=== PATIENT | female | born 1955 | race Caucasian/White ===

== ENCOUNTER 2016-10-22 14:57 | Inpatient (IN) | payer OTHER ==
[~2016-10-22] VITALS: Ht 162.6 cm; Wt 49.1 kg
[~2016-10-22 14:57] MED LIST: BENZ1CAP34 PO; CEPH500C3 PO; DOXY100T PO; HYDR200T42 PO; IPRAAER IN; LORTA5 PO; OSEL75 PO; TUSSSUS PO
[2016-10-22 15:04] VITALS: BP 146/80; PULSE 107; RESP 24; TEMP 99; O2SAT 92
[2016-10-22 15:13] VITALS: RESP 18; O2SAT 96
[2016-10-22] MEDS ORDERED: ALBUAER3 INH (15:17)
[2016-10-22] MEDS ORDERED: PLAQ200T PO (15:17)
[2016-10-22] MEDS ORDERED: LEVO500T8 PO (15:17)
[2016-10-22] MEDS ORDERED: PRED10 PO (15:17)
[2016-10-22] MEDS ORDERED: ALBU.5I NEB (15:17)
--- NOTE | 2016-10-22 15:21 | PD ---
HPI Chief Complaint: Respiratory Distress Time Seen by Provider: 15:12 Travel History International Travel<30 days: No Contact w/Intl Traveler<30days: No Traveled to known affect area: No History of Present Illness HPI The patient is a 61-year-old female who presents emergency department for shortness of breath. The patient states she developed shortness of breath and cough and cold symptoms several days ago, was evaluated at the [facility] walk-in clinic by Dr. Delvalle. The patient was placed on Levaquin, prednisone, and advised to use her albuterol nebulizers/inhalers at home. The patient has been taken her medications as directed, however, states her symptoms are progressing. The patient called her electrical tech/project manager this morning, Dr. Holden, who referred her to the emergency department for further evaluation. The patient does have a history of COPD, quit smoking 2 years ago. She also has a history of lupus for which she takes Plaquenil. The patient denies any known history congestive heart failure, pulmonary embolism, DVT, or coronary artery disease. Patient does have a dry, nonproductive cough, denies any associated chest pain, nausea, vomiting, diarrhea, or abdominal pain. PFSH Past Medical History Hx Anticoagulant Therapy: Yes (EXCEDRIN DAILY ) Autoimmune Disease: Yes (DISCOID LUPUS) Blood Disorders: No Cancer: No Cardiovascular Problems: No COPD: Yes Diminished Hearing: No Endocrine: No Gastrointestinal Disorders: No Genitourinary: Yes Musculoskeletal: No Neurologic: No Psychiatric: No Reproductive: No Respiratory: Yes (COPD) Past Surgical History Abdominal Surgery: No Cardiac Surgery: No Ear Surgery: No Endocrine Surgery: No Eye Surgery: No Genitourinary Surgery: No Gynecologic Surgery: No Neurologic Surgery: No Oral Surgery: No Thoracic Surgery: No Other Surgery: Yes ( EYELIDS, PLASTIC SURGERY) Social History Alcohol Use: No Tobacco Use: No (PACK PER DAY) Substance Use: No Allergies-Medications (Allergen,Severity, Reaction): Coded Allergies: Penicillin (Verified Allergy, Severe, UNKNOWN REACTION, 10/22/16) Codeine (Verified Adverse Reaction, Severe, VOMITING, DIARRHEA, 10/22/16) Erythromycin (Verified Adverse Reaction, Severe, VOMITING, DIARRHEA, ) Reported Meds & Prescriptions Reported Meds & Active Scripts Active Reported Proair Hfa 8.5 GM Inh (Albuterol Sulfate) 90 Mcg/Act Aer 2 Puff INH Q4-6H PRN 108 mcg/actuation Albuterol Neb (Albuterol Sulfate) 2.5 Mg/0.5 Ml Neb 2.5 Mg NEB Q6HR NEB Note: The Albuterol Sulfate Inhalation Solution is concentrated and must be diluted. Read complete instructions carefully before using. Prednisone 10 Mg Tab 10 Mg PO DIRECTED Levofloxacin 500 Mg Tablet 500 Mg PO DAILY Plaquenil (Hydroxychloroquine Sulfate) 200 Mg Tab 600 Mg PO DAILY Take with food Review of Systems Except as stated in HPI: all other systems reviewed are Neg General / Constitutional: No: Fever, Chills Cardiovascular: No: Chest Pain or Discomfort Respiratory: Positive: Cough, Shortness of Breath Gastrointestinal: No: Nausea, Vomiting, Abdominal Pain Musculoskeletal: No: Myalgias, Weakness, Edema Neurologic: No: Dizziness Physical Exam Narrative GENERAL: Awake, alert, pleasant 61-year-old female who appears her stated age and is in mild acute respiratory distress SKIN: Focused skin assessment warm/dry. HEAD: Atraumatic. Normocephalic. EYES: Pupils equal and round. No scleral icterus. No injection or drainage. ENT: No nasal bleeding or discharge. Mucous membranes pink and moist. NECK: Trachea midline. No JVD. CARDIOVASCULAR: Regular, tachycardic with a heart rate of 110. RESPIRATORY: Mild tachypnea with a respiratory rate of 24. Diminished breath sounds throughout with prolonged expiratory phase and scattered rhonchi. GASTROINTESTINAL: Abdomen soft, non-tender, nondistended. No rebound tenderness. MUSCULOSKELETAL: No obvious deformities. No clubbing. No cyanosis. No edema. NEUROLOGICAL: Awake and alert. No obvious cranial nerve deficits. Motor grossly within normal limits. Normal speech. PSYCHIATRIC: Appropriate mood and affect; insight and judgment normal. Data Data Last Documented VS Vital Signs Date Time Temp Pulse Resp B/P Pulse Ox O2 Delivery O2 Flow Rate FiO2 10/22/16 17:47 97 158/70 96 Nasal Cannula 2.0 10/22/16 15:13 18 10/22/16 15:04 99.0 Orders Complete Blood Count With Diff (10/22/16 15:16) Comprehensive Metabolic Panel (10/22/16 15:16) B-Type Natriuretic Peptide (10/22/16 15:16) Act Partial Throm Time (Ptt) (10/22/16 15:16) Prothrombin Time / Inr (Pt) (10/22/16 15:16) Magnesium (Mg) (10/22/16 15:16) Ckmb (Isoenzyme) Profile (10/22/16 15:16) Troponin I (10/22/16 15:16) Blood Culture (10/22/16 15:16) Iv Access Insert/Monitor (10/22/16 15:16) Electrocardiogram (10/22/16 15:16) Ecg Monitoring (10/22/16 15:16) Oximetry (10/22/16 15:16) Oxygen Administration (10/22/16 15:16) Chest, Single Ap (10/22/16 15:16) Sodium Chloride 0.9% Flush (Ns Flush) (10/22/16 15:30) Methylprednisolone So Succ Inj (Solumedr (10/22/16 15:30) Albuterol-Ipratropium Neb (Duoneb Neb) (10/22/16 15:30) Lactic Acid (10/22/16 15:16) Sodium Chlor 0.9% 1000 Ml Inj (Ns 1000 M (10/22/16 15:30) Ct Pulmonary Angiogram (10/22/16 ) CKMB (10/22/16 15:20) CKMB% (10/22/16 15:20) Iohexol 350 Inj (Omnipaque 350 Inj) (10/22/16 18:17) Labs Laboratory Tests Test 10/22/16 15:20 White Blood Count 7.1 TH/MM3 Red Blood Count 4.79 MIL/MM3 Hemoglobin 14.2 GM/DL Hematocrit 41.4 % Mean Corpuscular Volume 86.4 FL Mean Corpuscular Hemoglobin 29.5 PG Mean Corpuscular Hemoglobin 34.2 % Concent Red Cell Distribution Width 13.1 % Platelet Count 227 TH/MM3 Mean Platelet Volume 9.6 FL Neutrophils (%) (Auto) 88.6 % Lymphocytes (%) (Auto) 7.8 % Monocytes (%) (Auto) 3.2 % Eosinophils (%) (Auto) 0.0 % Basophils (%) (Auto) 0.4 % Neutrophils # (Auto) 6.3 TH/MM3 Lymphocytes # (Auto) 0.6 TH/MM3 Monocytes # (Auto) 0.2 TH/MM3 Eosinophils # (Auto) 0.0 TH/MM3 Basophils # (Auto) 0.0 TH/MM3 CBC Comment DIFF FINAL Differential Comment Prothrombin Time 11.3 SEC Prothromb Time International 1.0 RATIO Ratio Activated Partial 24.5 SEC Thromboplast Time Sodium Level 140 MEQ/L Potassium Level 4.3 MEQ/L Chloride Level 104 MEQ/L Carbon Dioxide Level 30.1 MEQ/L Anion Gap 6 MEQ/L Blood Urea Nitrogen 20 MG/DL Creatinine 0.71 MG/DL Estimat Glomerular Filtration 84 ML/MIN Rate Random Glucose 110 MG/DL Lactic Acid Level 1.2 mmol/L Calcium Level 9.3 MG/DL Magnesium Level 2.2 MG/DL Total Bilirubin 0.4 MG/DL Aspartate Amino Transf 24 U/L (AST/SGOT) Alanine Aminotransferase 34 U/L (ALT/SGPT) Alkaline Phosphatase 61 U/L Total Creatine Kinase 108 U/L Creatine Kinase MB 1.7 NG/ML Troponin I LESS THAN 0.02 NG/ML B-Type Natriuretic Peptide 21 PG/ML Total Protein 7.7 GM/DL Albumin 4.2 GM/DL MDM Medical Decision Making Medical Screen Exam Complete: Yes Emergency Medical Condition: Yes Medical Record Reviewed: Yes Interpretation(s) EKG reveals normal sinus rhythm with a rate in 93. Left ventricular hypertrophy. Nonspecific ST changes. Last Impressions Chest X-Ray 10/22/16 1516 Signed Impressions: Service Date/Time: Monday, October 22, 2016 15:36 - CONCLUSION: 1. No acute cardiopulmonary disease. Vadim Archuleta MD Laboratory Tests Test 10/22/16 15:20 White Blood Count 7.1 TH/MM3 Red Blood Count 4.79 MIL/MM3 Hemoglobin 14.2 GM/DL Hematocrit 41.4 % Mean Corpuscular Volume 86.4 FL Mean Corpuscular Hemoglobin 29.5 PG Mean Corpuscular Hemoglobin 34.2 % Concent Red Cell Distribution Width 13.1 % Platelet Count 227 TH/MM3 Mean Platelet Volume 9.6 FL Neutrophils (%) (Auto) 88.6 % Lymphocytes (%) (Auto) 7.8 % Monocytes (%) (Auto) 3.2 % Eosinophils (%) (Auto) 0.0 % Basophils (%) (Auto) 0.4 % Neutrophils # (Auto) 6.3 TH/MM3 Lymphocytes # (Auto) 0.6 TH/MM3 Monocytes # (Auto) 0.2 TH/MM3 Eosinophils # (Auto) 0.0 TH/MM3 Basophils # (Auto) 0.0 TH/MM3 CBC Comment DIFF FINAL Differential Comment Prothrombin Time 11.3 SEC Prothromb Time International 1.0 RATIO Ratio Activated Partial 24.5 SEC Thromboplast Time Sodium Level 140 MEQ/L Potassium Level 4.3 MEQ/L Chloride Level 104 MEQ/L Carbon Dioxide Level 30.1 MEQ/L Anion Gap 6 MEQ/L Blood Urea Nitrogen 20 MG/DL Creatinine 0.71 MG/DL Estimat Glomerular Filtration 84 ML/MIN Rate Random Glucose 110 MG/DL Lactic Acid Level 1.2 mmol/L Calcium Level 9.3 MG/DL Magnesium Level 2.2 MG/DL Total Bilirubin 0.4 MG/DL Aspartate Amino Transf 24 U/L (AST/SGOT) Alanine Aminotransferase 34 U/L (ALT/SGPT) Alkaline Phosphatase 61 U/L Total Creatine Kinase 108 U/L Creatine Kinase MB 1.7 NG/ML Troponin I LESS THAN 0.02 NG/ML B-Type Natriuretic Peptide 21 PG/ML Total Protein 7.7 GM/DL Albumin 4.2 GM/DL CT pulmonary angiogram reveals no pulmonary embolus or other acute cardiopulmonary disease demonstrated. Emphysema and left ventricular hypertrophy noted. Differential Diagnosis Differential diagnosis includes pneumonia, bronchitis, pulmonary embolism, acute coronary syndrome, pleural effusion, congestive heart failure, flash pulmonary edema, pneumonitis, pericardial effusion. Narrative Course IV was established, labs are drawn and sent, and the patient was placed on cardiac telemetry monitoring and continuous pulse oximetry monitoring. EKG was ordered and interpreted. Chest x-ray was obtained. The patient was administered Solu-Medrol 125 mg intravenously and duo nebs 3 with 1 L of IV fluids. Chest x-rays unremarkable and the patient was tachycardic with hypoxia , therefore, CT pulmonary angiogram was ordered. CT pulmonary injury gram is negative except for emphysema left ventricular hypertrophy. The patient was reevaluated at 6:25 PM. The patient ambulated from the bathroom to her room, was significantly short of breath, this is consistent with bronchitis and her COPD exacerbation. The patient is a 30 on antibiotics and steroids and her symptoms are progressing. The patient has [facility] and is a patient of Gurinder Montana, therefore, the on-call [facility] physician was paged for admission. Physician Communication Physician Communication [facility] was paged for admission. I discussed the patient with Dr. White who agrees with admission to Dr. Klein Diagnosis Primary Impression: COPD exacerbation Additional Impressions: Bronchitis Hypoxia Admitting Information Admitting Physician Requests: Admit Condition: Stable Ramo Galicia MD Oct 22, 2016 15:21
[2016-10-22] MEDS ORDERED: SODIUM CHLORIDE 0.9% FLUSH 10 ML FLUSH IVF PRN (15:30)
[2016-10-22] MEDS ORDERED: SODIUM CHLOR 0.9% 1000 ML INJ 1,000 ML IV ONE (15:30)
[2016-10-22] MEDS ORDERED: methylPREDNISolone SOD SUCC 125 MG/2 ML VIAL IVP ONE (15:30)
[2016-10-22 15:53] LABS: AUTOMATED NEUTROPHIL # 6.3 TH/MM3 (1.8-7.7); BASOPHIL % 0.4 % (0.0-2.0); HEMATOCRIT 41.4 % (35.0-46.0); HEMO FLAGS DIFF FINAL; LYMPH % 7.8 % (9.0-44.0); LYMPHOCYTE # 0.6 TH/MM3 (1.0-4.8); MEAN CELL VOLUME 86.4 FL (80.0-100.0); MEAN CORPUSCULAR HEMOGLOBIN 29.5 PG (27.0-34.0); MEAN CORPUSCULAR HGB CONC 34.2 % (32.0-36.0); MONO % 3.2 % (0.0-8.0); NEUT % 88.6 % (16.0-70.0); PLATELET COUNT 227 TH/MM3 (150-450); RED BLOOD COUNT 4.79 MIL/MM3 (4.00-5.30); RED CELL DISTRIBUTION WIDTH 13.1 % (11.6-17.2); WHITE BLOOD COUNT 7.1 TH/MM3 (4.0-11.0)
--- NOTE | 2016-10-22 15:57 | RADRPT ---
EXAM DATE/TIME: 10/22/2016 15:36 [facility] COMPARISON: No previous studies available for comparison. INDICATIONS : Shortness of breath. MEDICAL HISTORY : Chronic obstructive pulmonary disease. SURGICAL HISTORY : None. ENCOUNTER: Initial ACUITY: 1 day PAIN SCORE: 0/10 LOCATION: Bilateral chest FINDINGS: Lungs are hyperexpanded but are otherwise clear. Cardiomediastinal contours are within normal limits. Bony thorax is intact. CONCLUSION: 1. No acute cardiopulmonary disease. Vadim Archuleta MD on October 22, 2016 at 15:55 Board Certified Radiologist. This report was verified electronically.
[2016-10-22 16:03] LABS: APTT (PATIENT) 24.5 SEC (24.3-30.1); PROTHROMBIN TIME - PATIENT 11.3 SEC (9.8-11.6)
[2016-10-22 16:20] VITALS: BP 161/79; PULSE 82; RESP 16; O2SAT 99
[2016-10-22 16:21] LABS: ALKALINE PHOSPHATASE 61 U/L (45-117); CREATINE KINASE 108 U/L (26-192); TOTAL BILIRUBIN ADULT 0.4 MG/DL (0.2-1.0)
[2016-10-22 16:24] LABS: ALT (GPT) 34 U/L (10-53); ANION GAP 6 MEQ/L (5-15); AST (GOT) 24 U/L (15-37); BICARBONATE 30.1 MEQ/L (21.0-32.0); BLOOD UREA NITROGEN 20 MG/DL (7-18); CHLORIDE 104 MEQ/L (98-107); GLOMERULAR FILTRATION RATE 84 ML/MIN (>89); MAGNESIUM 2.2 MG/DL (1.5-2.5); POTASSIUM 4.3 MEQ/L (3.5-5.1); SODIUM (NA) 140 MEQ/L (136-145)
[2016-10-22 16:33] LABS: CKMB 1.7 NG/ML (0.5-3.6)
[2016-10-22] MEDS: RESP: ALBUTEROL 2.5 MG/IPRATROPIUM 0.5 MG NEB (SCH) INH ×2 (16:57→16:58)
[2016-10-22 17:47] VITALS: BP 158/70; PULSE 97; O2SAT 96
[2016-10-22] MEDS ORDERED: IOHEXOL 350 MG/ML 10 ML VIAL (for RAD DIAG) IV ONE (18:17)
--- NOTE | 2016-10-22 18:21 | RADRPT ---
EXAM DATE/TIME: 10/22/2016 18:00 [facility] COMPARISON: CHEST SINGLE AP, October 22, 2016, 15:36. INDICATIONS : Shortness of breath. IV CONTRAST: 80 cc Omnipaque 350 (iohexol) IV RADIATION DOSE: 20.93 CTDIvol (mGy) MEDICAL HISTORY : Chronic obstructive pulmonary disease. Lupus SURGICAL HISTORY : None. ENCOUNTER: Initial ACUITY: 3 days PAIN SCALE: 0/10 LOCATION: Bilateral cranial TECHNIQUE: Volumetric scanning of the chest was performed using a pulmonary embolism protocol MIP images were re constructed. Using automated exposure control and adjustment of the mA and/or kV according to patien t size, radiation dose was kept as low as reasonably achievable to obtain optimal diagnostic quality images. FINDINGS: PULMONARY ARTERIES: No filling defects are seen in the pulmonary arteries through the segmental level. LUNGS: There is no consolidation or pneumothorax . No concerning pulmonary nodule is visualized. Moderate c entrilobular emphysema noted. PLEURAE: There is no pleural thickening or pleural effusion. MEDIASTINUM: There is good visualization of the great vessels of the middle mediastinum. No evidence of mediastin al or hilar adenopathy/mass. Thick left ventricular wall. No perceptible dilatation. MUSCULOSKELETAL: Within normal limits for patient age. MISCELLANEOUS: The visualized upper abdominal organs demonstrate no acute abnormality. A 12 mm hemangioma is seen in the visualized left hepatic lobe. CONCLUSION: No pulmonary embolus or other acute cardiopulmonary disease demonstrated. Emphysema and left ventricu lar hypertrophy noted. Jack Bailey MD on October 22, 2016 at 18:17 Board Certified Radiologist. This report was verified electronically.
[2016-10-22] MEDS ORDERED: ALBUTEROL SULFATE 90 MCG/ACT HFA 8 GM INHALER INH PRN (20:00)
--- NOTE | 2016-10-22 20:08 | HHI.HP ---
HPI Service [facility] Hospitalists Primary Care Physician Gurinder Montana DO Admission Diagnosis COPD exacerbation fell outpatient therapy, dyspnea Chief Complaint: increasing Shortness of breath Travel History International Travel<30 Days: No Contact w/Intl Traveler <30 Da: No Traveled to Known Affected Are: No History of Present Illness The patient is a 61-year-old female who presents emergency department for shortness of breath. The patient states she developed shortness of breath and cough and cold symptoms several days ago, was evaluated at the [facility] walk-in clinic by Dr. Delvalle. The patient was placed on Levaquin, prednisone, and advised to use her albuterol nebulizers/inhalers at home. The patient has been taken her medications as directed, however, states her symptoms are progressing. The patient called her supervisor public message service this morning, Dr. Holden, who referred her to the emergency department for further evaluation. The patient does have a history of COPD, quit smoking 2 years ago. She also has a history of lupus for which she takes Plaquenil. The patient denies any known history congestive heart failure, pulmonary embolism, DVT, or coronary artery disease. Patient does have a dry, nonproductive cough, denies any associated chest pain, nausea, vomiting, diarrhea, or abdominal pain. Despite treatment in ER remained short of breath and will be admitted for continued treatment. Review of Systems Respiratory: COMPLAINS OF: Shortness of breath Past Family Social History Past Medical History lupus copd Past Surgical History breast augmentation,eyelid plastic surgery Reported Medications nebulizer proaire,prednisone ,levaquin,plaquinil Allergies: Coded Allergies: Penicillin (Verified Allergy, Severe, UNKNOWN REACTION, 10/22/16) Codeine (Verified Adverse Reaction, Severe, VOMITING, DIARRHEA, 10/22/16) Erythromycin (Verified Adverse Reaction, Severe, VOMITING, DIARRHEA, ) Social History smokes 1 ppd Physical Exam Vital Signs Vital Signs Date Time Temp Pulse Resp B/P Pulse Ox O2 Delivery O2 Flow Rate FiO2 10/22/16 17:47 97 158/70 96 Nasal Cannula 2.0 10/22/16 16:20 82 16 161/79 99 Nasal Cannula 2 10/22/16 15:13 18 96 Nasal Cannula 2 10/22/16 15:13 96 Nasal Cannula 2 10/22/16 15:04 99.0 107 24 146/80 92 Room Air Physical Exam GENERAL: This is a well-nourished, well-developed patient, in no apparent distress. SKIN: No rashes, ecchymoses or lesions. Cool and dry. HEAD: Atraumatic. Normocephalic. No temporal or scalp tenderness. EYES: Pupils equal round and reactive. Extraocular motions intact. No scleral icterus. No injection or drainage. ENT: Nose without bleeding, purulent drainage or septal hematoma. Throat without erythema, tonsillar hypertrophy or exudate. Uvula midline. Airway patent. NECK: Trachea midline. No JVD or lymphadenopathy. Supple, nontender, no meningeal signs. CARDIOVASCULAR: Regular rate and rhythm without murmurs, gallops, or rubs. RESPIRATORY: Decrease breath sounds with bilateral rhonchi GASTROINTESTINAL: Abdomen soft, non-tender, nondistended. No hepato-splenomegaly , or palpable masses. No guarding. MUSCULOSKELETAL: Extremities without clubbing, cyanosis, or edema. No joint tenderness, effusion, or edema noted. No calf tenderness. Negative Homans sign bilaterally. NEUROLOGICAL: Awake and alert. Cranial nerves II through XII intact. Motor and sensory grossly within normal limits. Five out of 5 muscle strength in all muscle groups. Normal speech. Laboratory Laboratory Tests Test 10/22/16 15:20 White Blood Count 7.1 Red Blood Count 4.79 Hemoglobin 14.2 Hematocrit 41.4 Mean Corpuscular Volume 86.4 Mean Corpuscular Hemoglobin 29.5 Mean Corpuscular Hemoglobin 34.2 Concent Red Cell Distribution Width 13.1 Platelet Count 227 Mean Platelet Volume 9.6 Neutrophils (%) (Auto) 88.6 Lymphocytes (%) (Auto) 7.8 Monocytes (%) (Auto) 3.2 Eosinophils (%) (Auto) 0.0 Basophils (%) (Auto) 0.4 Neutrophils # (Auto) 6.3 Lymphocytes # (Auto) 0.6 Monocytes # (Auto) 0.2 Eosinophils # (Auto) 0.0 Basophils # (Auto) 0.0 CBC Comment DIFF FINAL Differential Comment Prothrombin Time 11.3 Prothromb Time International 1.0 Ratio Activated Partial 24.5 Thromboplast Time Sodium Level 140 Potassium Level 4.3 Chloride Level 104 Carbon Dioxide Level 30.1 Anion Gap 6 Blood Urea Nitrogen 20 Creatinine 0.71 Estimat Glomerular Filtration 84 Rate Random Glucose 110 Lactic Acid Level 1.2 Calcium Level 9.3 Magnesium Level 2.2 Total Bilirubin 0.4 Aspartate Amino Transf 24 (AST/SGOT) Alanine Aminotransferase 34 (ALT/SGPT) Alkaline Phosphatase 61 Total Creatine Kinase 108 Creatine Kinase MB 1.7 Troponin I LESS THAN 0.02 B-Type Natriuretic Peptide 21 Total Protein 7.7 Albumin 4.2 Date/Time Procedure Status Source Growth 10/22/16 15:20 Aerobic Blood Culture Received Blood Peripheral Pending 10/22/16 15:20 Anaerobic Blood Culture Received Blood Peripheral Pending Result Diagram: 10/22/16 1520 10/22/16 1520 Imaging Last 24 hours Impressions Chest X-Ray 10/22/16 1516 Signed Impressions: Service Date/Time: Saturday, October 22, 2016 15:36 - CONCLUSION: 1. No acute cardiopulmonary disease. Vadim Archuleta MD CT Angiography 10/22/16 0000 Signed Impressions: Service Date/Time: Monday, October 22, 2016 18:00 - CONCLUSION: No pulmonary embolus or other acute cardiopulmonary disease demonstrated. Emphysema and left ventricular hypertrophy noted. Jack Bailey MD Course in er received IV steroids and nebulizer Assessment and Plan Problem List: (1) COPD exacerbation Status: Acute Plan: admit IV steroids,nebulizer consult pulmonary Assessment and Plan further plan as case develops Code Status full Discussed Condition With patient Physician Certification 2 Midnight Certification Type: Admission for Inpatient Services Order for Inpatient Services The services are ordered in accordance with Medicare regulations or non- Medicare payer requirements, as applicable. In the case of services not specified as inpatient-only, they are appropriately provided as inpatient services in accordance with the 2-midnight benchmark. Estimated LOS (days): 3 3 days is the estimated time the patient will need to remain in the hospital, assuming treatment plan goals are met and no additional complications. Post-Hospital Plan: Not yet determined Kane White MD Oct 22, 2016 20:08
[2016-10-22] MEDS ORDERED: BISACODYL 10 MG SUPP RECTAL PRN (20:15)
[2016-10-22] MEDS ORDERED: SODIUM CHLORIDE 0.9% FLUSH 10 ML FLUSH IV FLUSH PRN (20:15)
[2016-10-22] MEDS ORDERED: SENNOSIDES 8.6 MG TAB PO PRN (20:15)
[2016-10-22] MEDS ORDERED: MAGNESIUM HYDROXIDE SUSP 30 ML CUP PO PRN (20:15)
[2016-10-22] MEDS ORDERED: LACTULOSE SYRUP 20 GM/30 ML CUP PO PRN (20:15)
[2016-10-22] MEDS ORDERED: NALOXONE HCL 0.4 MG/ML AMP IV PRN (20:15)
[2016-10-22] MEDS ORDERED: ACETAMINOPHEN 325 MG TAB PO PRN (20:15)
[2016-10-22] MEDS ORDERED: ALBUTEROL SULFATE 90 MCG/ACT HFA 18 GM INHALER INH PRN (20:30)
[2016-10-22] MEDS: SODIUM CHLORIDE 0.9% FLUSH 10 ML FLUSH IV FLUSH SCH (21:00)
[2016-10-22] MEDS: DOCUSATE SODIUM 50 MG/SENNA 8.6 MG TAB PO SCH (21:00)
[2016-10-22 21:05] VITALS: BP 133/79; PULSE 78; RESP 18; TEMP 98.7; O2SAT 96
[2016-10-22 21:20] VITALS: O2SAT 95
[2016-10-22] MEDS: RESP: ALBUTEROL 2.5 MG/IPRATROPIUM 0.5 MG NEB (SCH) NEB (21:20)
[2016-10-22] MEDS: methylPREDNISolone SOD SUCC 125 MG/2 ML VIAL IV PUSH SCH (21:29)
[2016-10-22] MEDS: HYDROXYCHLOROQUINE SULFATE 200 MG TAB PO SCH (21:50)
[2016-10-23] VITALS (8 sets, daily range): BP systolic 113–150; BP diastolic 62–79; PULSE 75–96; RESP 16–22; TEMP 97.8–98.9; O2SAT 94–99
[2016-10-23] MEDS: methylPREDNISolone SOD SUCC 125 MG/2 ML VIAL IV PUSH SCH ×4 (06:06→23:23)
[2016-10-23] MEDS: RESP: ALBUTEROL 2.5 MG/IPRATROPIUM 0.5 MG NEB (SCH) NEB ×4 (07:21→19:36)
[2016-10-23] MEDS: DOCUSATE SODIUM 50 MG/SENNA 8.6 MG TAB PO SCH ×3 (08:57→21:35)
[2016-10-23] MEDS: SODIUM CHLORIDE 0.9% FLUSH 10 ML FLUSH IV FLUSH SCH ×2 (08:57→21:00)
[2016-10-23] MEDS: HYDROXYCHLOROQUINE SULFATE 200 MG TAB PO SCH ×2 (08:57→21:36)
[2016-10-23] MEDS: LEVOFLOXACIN 500 MG TAB PO SCH (08:57)
[2016-10-23] MEDS ORDERED: HYDROXYCHLOROQUINE SULFATE 200 MG TAB PO SCH (09:00)
[2016-10-23] MEDS ORDERED: LORATADINE 10 MG TAB PO ONE (12:15)
--- NOTE | 2016-10-23 12:28 | EKG ---
Date Performed: 10/22/2016 Time Performed: 15:26:03 PTAGE: 61 years EKG: Sinus rhythm MINIMAL VOLTAGE CRITERIA FOR LVH, CONSIDER NORMAL VARIANT MINIMAL ST DEPRESSION BORDERLINE ECG PREVIOUS TRACING : 06/19/2005 16.46 Compared to prior tracing no significant change DOCTOR: Donal Faulkner Interpretating Date/Time 10/23/2016 12:24:41
--- NOTE | 2016-10-23 12:54 | HHI.PR ---
Subjective Remarks still feels about the same. lungs feel tight when she breaths denies any cardiac hx. Objective Vitals heart reg lung rhonci upper airways. worse with deep cough scattered wheeze abd s/nt ext no edema Vital Signs Date Time Temp Pulse Resp B/P Pulse Ox O2 Delivery O2 Flow Rate FiO2 10/23/16 08:00 98.6 75 22 143/64 95 10/23/16 07:22 99 Nasal Cannula 2.00 10/23/16 04:00 98.3 79 18 143/79 96 10/23/16 00:00 97.8 77 16 113/71 98 10/22/16 21:30 2.00 10/22/16 21:20 95 Nasal Cannula 2.00 10/22/16 21:05 98.7 78 18 133/79 96 10/22/16 17:47 97 158/70 96 Nasal Cannula 2.0 10/22/16 16:20 82 16 161/79 99 Nasal Cannula 2 10/22/16 15:13 18 96 Nasal Cannula 2 10/22/16 15:13 96 Nasal Cannula 2 10/22/16 15:04 99.0 107 24 146/80 92 Room Air 10/22/16 10/22/16 10/23/16 15:00 23:00 07:00 Intake Total 2 ml 246 ml Balance 2 ml 246 ml Intake Oral 240 ml IV Total 2 ml 6 ml # Voids 2 # Bowel Movements 0 Result Diagram: 10/22/16 1520 10/22/16 1520 Imaging Last 24 hours Impressions Chest X-Ray 10/22/16 1516 Signed Impressions: Service Date/Time: Saturday, October 22, 2016 15:36 - CONCLUSION: 1. No acute cardiopulmonary disease. Vadim Archuleta MD CT Angiography 10/22/16 0000 Signed Impressions: Service Date/Time: Saturday, October 22, 2016 18:00 - CONCLUSION: No pulmonary embolus or other acute cardiopulmonary disease demonstrated. Emphysema and left ventricular hypertrophy noted. Jack Bailey MD A/P Problem List: (1) COPD exacerbation Status: Acute Plan: Pt admitted last night for copd exacerbation. She has hx Lupus which has been well controlled on dmard therapy Denies any cardiac dz hx CTA neg for PE/PNA cont duonebs, abx, soleumerol, and also claritin for post nasal drip echo to eval LVF dvt prophylaxis oxygen as needed. (2) Lupus Status: Chronic Alex Klein MD Oct 23, 2016 12:54
[2016-10-23] MEDS: ACETAMINOPHEN/HYDROcodone 325 MG/5 MG TAB PO PRN ×3 (13:02→21:35)
[2016-10-23] MEDS: CLINDAMYCIN INJ 600 MG in SODIUM CHLORIDE 0.9% INJ 100 ML IV SCH ×2 (17:00→23:23)
[2016-10-24] VITALS (8 sets, daily range): BP systolic 107–145; BP diastolic 54–73; PULSE 65–96; RESP 16–18; TEMP 97.7–98.6; O2SAT 92–96
--- NOTE | 2016-10-24 05:27 | MB ---
cc: VINAY JARAMILLO DATE OF 1955. DATE OF CONSULTATION 10/23/2016 CHIEF COMPLAINT Shortness of breath and cough. PRESENT ILLNESS This is a 65-year-old white female who has had a past history of chronic dyspnea, cough and COPD and was treated as an outpatient for shortness of breath and was on oral antibiotics for an episode of bronchitis and asthma. The patient was on Levaquin and prednisone but failed to improve and in spite of using nebulized albuterol she had persistent symptoms and thus was advised to come into the hospital for evaluation. The patient had a chest CT done upon arrival in the ER which showed no active infiltrates and no evidence of pulmonary emboli. She was then started on IV antibiotics and IV Solu-Medrol and now on oxygen at 2 liters. Denies chest pains or fevers and night sweats with hemoptysis. PAST HISTORY 1. Past history included history of system lupus. 2. Prior history of breast augmentation surgery. 3. Eyelid surgery. HABITS The patient smoked one-pack per day for over 35 years and quit more than a year and half ago. No significant alcohol. ALLERGIES PENICILLIN. CODEINE. E-MYCIN. MED LIST 1. Prednisone 20 mg daily. 2. Nebulized albuterol q.i.d. 3. Levaquin 500 mg daily. FAMILY HISTORY Essentially noncontributory. REVIEW OF SYSTEMS The patient has lost weight. She has cough and wheezing with epigastric distress and nausea. There is no urinary symptoms. No leg or calf muscle pains. She has some joint pains in her extremities and denies skin rash. She has anxiety attacks. The rest of the system review is negative. PHYSICAL EXAMINATION GENERAL: An averagely built middle-aged white female in no acute distress. VITAL SIGNS: Blood pressure 130/70, pulse is 95, respirations 22, temperature is 98.2. HEENT: Head normocephalic. Pupils are reactive. Tongue is moist. Nasal mucosae edematous. Throat is injected. Ears - no inflammation. NECK: Supple. No venous distension. Trachea midline. CHEST: Equal movements with percussion note resonant throughout. Breath sounds are distant with occasional wheezes anteriorly and no crackles on either side. HEART: The heart sounds are irregular. S1 and S2. No murmur. No S3. ABDOMEN: Soft, protuberant. No masses, no organomegaly or tenderness. The bowel sounds are active. EXTREMITIES: Mild varicosities. No edema. Reflexes 1+. No gross motor deficits. Cranial nerves are grossly intact. RECTAL: Exam is deferred. IMPRESSION 1. COPD and acute exacerbation. 2. History of systemic lupus. 3. Reactive airways. PLAN 1. The patient has been started on nebulized albuterol/Atrovent solution q.i.d. 2. Oxygen at 2 liters nasal cannula. 3. Blood gas study will be obtained. 4. We will continue with Levaquin 500 mg a day. 5. Clindamycin was added 600 mg IV q.8 hours. 6. Solu-Medrol 60 mg IV q. 6 and Symbicort 160/4.5 two puffs twice a day. 7. Sputum will be sent for culture and Gram's stain. 8. We could switch her to oral medications over the next 24-48 hours if she is clinically stable. Thank you Dr. Klein for this consultation. MD GÓMEZ Perrin/RAKESH /10:30 PM /5:21 AM
[2016-10-24] MEDS: CLINDAMYCIN INJ 600 MG in SODIUM CHLORIDE 0.9% INJ 100 ML IV SCH ×3 (06:07→22:53)
[2016-10-24] MEDS: methylPREDNISolone SOD SUCC 125 MG/2 ML VIAL IV PUSH SCH ×2 (06:07→10:40)
[2016-10-24] MEDS: RESP: ALBUTEROL 2.5 MG/IPRATROPIUM 0.5 MG NEB (SCH) NEB ×4 (07:30→20:28)
[2016-10-24] MEDS: DOCUSATE SODIUM 50 MG/SENNA 8.6 MG TAB PO SCH ×2 (09:00→20:47)
[2016-10-24] MEDS: SODIUM CHLORIDE 0.9% FLUSH 10 ML FLUSH IV FLUSH SCH ×2 (10:12→20:48)
[2016-10-24] MEDS: LEVOFLOXACIN 500 MG TAB PO SCH (10:39)
[2016-10-24] MEDS: LORATADINE 10 MG TAB PO SCH (10:39)
[2016-10-24] MEDS: HYDROXYCHLOROQUINE SULFATE 200 MG TAB PO SCH ×2 (10:40→20:48)
--- NOTE | 2016-10-24 13:05 | HHI.PR ---
Subjective Remarks Feels SOB . Has lower chest tightness. Cough still .NO fever Objective Vital Signs Date Time Temp Pulse Resp B/P Pulse Ox O2 Delivery O2 Flow Rate FiO2 10/24/16 12:25 98.1 94 18 126/61 95 10/24/16 08:25 98.6 65 17 122/58 96 10/24/16 07:30 95 Nasal Cannula 2.00 10/24/16 04:10 97.7 80 16 111/55 95 10/24/16 01:58 Nasal Cannula 2.00 10/24/16 00:00 97.8 87 16 107/54 96 10/23/16 22:00 Nasal Cannula 2.00 10/23/16 20:00 98.5 94 16 136/62 95 10/23/16 19:36 94 Nasal Cannula 2.00 10/23/16 16:00 98.9 96 18 139/64 94 I/O 10/23/16 10/23/16 10/23/16 10/24/16 10/24/16 10/24/16 07:00 15:00 23:00 07:00 15:00 23:00 Intake Total 246 ml 240 ml 448 ml 244 ml Balance 246 ml 240 ml 448 ml 244 ml Intake Oral 240 ml 240 ml 240 ml 240 ml IV Total 6 ml 0 ml 208 ml 4 ml # Voids 2 4 1 4 # Bowel Movements 0 0 0 0 Result Diagram: 10/22/16 1520 10/22/16 1520 Objective Remarks GENERAL: An averagely built middle-aged white female in no acute distress. HEENT: Head normocephalic. Pupils are reactive. Tongue is moist. Nasal mucosae edematous. Throat is injected. Ears - no inflammation. NECK: Supple. No venous distension. Trachea midline. CHEST: Equal movements with percussion note resonant throughout. Breath sounds are distant with occasional wheezes anteriorly and no crackles on either side. HEART: The heart sounds are irregular. S1 and S2. No murmur. No S3. ABDOMEN: Soft, protuberant. No masses, no organomegaly or tenderness. The bowel sounds are active. EXTREMITIES: No edema. Reflexes 1+. No gross motor deficits. Cranial nerves are grossly intact. RECTAL: Exam is deferred. Assessment and Plan Assessment and Plan IMPRESSION 1. COPD and acute exacerbation. 2. History of systemic lupus. 3. Reactive airways. 4. Anxiety Plan : 1. Cont antibiotics. 2. O2 at 2 L. 3. Solumedrol to 40 mg q6h 4. Add Xanax .25 mg qid prn 5. Get Chest Xray ,ABG,PFT Sudeep Coronado MD Oct 24, 2016 13:05
[2016-10-24 13:45] LABS: BLOOD GAS BASE EXCESS 5.4 mmol/L (-2-2); BLOOD GAS CARBOXYHEMOGLOBIN 0.9 % (0-4); BLOOD GAS HCO3 29 mmol/L (22-26); BLOOD GAS O2 HGB SATURATION 94 % (90-100); BLOOD GAS OXYGEN CONTENT 16.8 Vol % (12.0-20.0); BLOOD GAS PCO2 42 mmHg (38-42); BLOOD GAS PO2 76 mmHg (61-120); BLOOD GAS TOTAL HGB 12.7 G/DL (12.0-16.0); CRITICAL VALUE NO; LITER FLOW 2 L/M; OXYGEN DEVICE NASAL CANNULA; TEMP CORR TO 98.6
[2016-10-24 13:46] LABS: DRAW SITE RT RADIAL; NUMBER OF ARTERIAL PUNCTURES 2; STAT NO; ULNAR PULSE PRESENT
--- NOTE | 2016-10-24 14:14 | RADRPT ---
EXAM DATE/TIME: 10/24/2016 13:04 [facility] COMPARISON: CHEST SINGLE AP, October 22, 2016, 15:36. INDICATIONS : Chest pain. MEDICAL HISTORY : Chronic obstructive pulmonary disease. SURGICAL HISTORY : Breast augmentation. ENCOUNTER: Initial ACUITY: 2 days PAIN SCORE: 5/10 LOCATION: Bilateral chest FINDINGS: A single view of the chest demonstrates the lungs to be symmetrically aerated without evidence of mas s, infiltrate or effusion. The cardiomediastinal contours are unremarkable. Osseous structures are intact. CONCLUSION: No acute disease. Orlin Ross MD FACR on October 24, 2016 at 14:12 Board Certified Radiologist. This report was verified electronically.
--- NOTE | 2016-10-24 14:27 | ECHRPT ---
Indication: Shortness of breath CONCLUSIONS The left ventricular systolic function is low normal with an estimated ejection fraction in the rang e of 50- 55%. Normal left ventricular size. Wall thickness is normal. BP: 150 / 71 HR: 95 Rhythm: Sinus MEASUREMENTS (Male / Female) Normal Values Technical Quality:Good 2D ECHO LV Diastolic Diameter PLAX 4.6 cm 4.2 - 5.9 / 3.9 - 5.3 cm LV Systolic Diameter PLAX 3.5 cm IVS Diastolic Thickness 0.8 cm 0.6 - 1.0 / 0.6 - 0.9 cm LVPW Diastolic Thickness 0.8 cm 0.6 - 1.0 / 0.6 - 0.9 cm LV Relative Wall Thickness 0.4 LVOT Diameter 1.7 cm M-MODE Aortic Root Diameter MM 3.0 cm LA Systolic Diameter MM 2.9 cm LA Ao Ratio MM 1.0 AV Cusp Separation MM 1.7 cm DOPPLER AV Peak Velocity 144.0 cm/s AV Peak Gradient 8.3 mmHg LVOT Peak Velocity 89.3 cm/s LVOT Peak Gradient 3.2 mmHg AV Area Cont Eq pk 1.4 cm Mitral E Point Velocity 104.0 cm/s Mitral A Point Velocity 75.0 cm/s Mitral E to A Ratio 1.4 LV E' Lateral Velocity 8.9 cm/s Mitral E to LV E' Lateral Ratio 11.7 LV E' Septal Velocity 9.4 cm/s Mitral E to LV E' Septal Ratio 11.1 TR Peak Velocity 229.0 cm/s TR Peak Gradient 21.0 mmHg FINDINGS LEFT VENTRICLE The left ventricular systolic function is low normal with an estimated ejection fraction in the rang e of 50- 55%. Normal left ventricular size. Wall thickness is normal. Structurally normal tricuspid valve. There is mild tricuspid valve regurgitation. The estimated pulmonary arterial pressure is 31 mmHg. RIGHT VENTRICLE Normal right ventricular size and systolic function. LEFT ATRIUM The left atrial size is normal. RIGHT ATRIUM The right atrial size is normal. ATRIAL SEPTUM Normal atrial septal thickness without atrial level shunting by limited color doppler interrogation. AORTA The aortic root and proximal ascending aorta are normal in size on limited imaging. MITRAL VALVE Structurally normal mitral valve. No mitral valve stenosis or regurgitation. AORTIC VALVE Trileaflet aortic valve. No aortic valve stenosis or regurgitation. TRICUSPID VALVE Structurally normal tricuspid valve. There is mild tricuspid valve regurgitation. The estimated pulmonary arterial pressure is 31 mmHg. PULMONARY VALVE The pulmonary valve is not well visualized. VESSELS The inferior vena cava is normal in size. PERICARDIUM No pericardial effusion. Jerry Freeman MD (Electronically Signed) Final Date:24 October 2016 14:26
--- NOTE | 2016-10-24 15:26 | HHI.PR ---
Subjective Remarks Pt states that she does not feel that her SOB is much better today She is concerned about her heart being enlarged because she was told that her CT scan showed enlargement of her heart. Dry cough Afebrile Appears anxious Objective Vitals Vital Signs Date Time Temp Pulse Resp B/P Pulse Ox O2 Delivery O2 Flow Rate FiO2 10/24/16 12:25 98.1 94 18 126/61 95 10/24/16 08:25 98.6 65 17 122/58 96 10/24/16 07:30 95 Nasal Cannula 2.00 10/24/16 04:10 97.7 80 16 111/55 95 10/24/16 01:58 Nasal Cannula 2.00 10/24/16 00:00 97.8 87 16 107/54 96 10/23/16 22:00 Nasal Cannula 2.00 10/23/16 20:00 98.5 94 16 136/62 95 10/23/16 19:36 94 Nasal Cannula 2.00 10/23/16 16:00 98.9 96 18 139/64 94 10/23/16 10/23/16 10/24/16 15:00 23:00 07:00 Intake Total 240 ml 448 ml 244 ml Balance 240 ml 448 ml 244 ml Intake Oral 240 ml 240 ml 240 ml IV Total 0 ml 208 ml 4 ml # Voids 4 1 4 # Bowel Movements 0 0 0 Result Diagram: 10/22/16 1520 10/22/16 1520 Other Results Laboratory Tests Test 10/24/16 13:30 Blood Gas Puncture Site RT RADIAL Blood Gas Patient Temperature 98.6 Blood Gas HCO3 29 mmol/L Blood Gas Base Excess 5.4 mmol/L Blood Gas Oxygen Saturation 94 % Arterial Blood pH 7.46 Arterial Blood Partial 42 mmHg Pressure CO2 Arterial Blood Partial 76 mmHg Pressure O2 Arterial Blood Oxygen Content 16.8 Vol % Arterial Blood 0.9 % Carboxyhemoglobin Arterial Blood Methemoglobin 1.0 % Blood Gas Hemoglobin 12.7 G/DL Oxygen Delivery Device NASAL CANNULA Blood Gas Liter Flow 2 L/M Imaging Last Impressions Chest X-Ray 10/24/16 0000 Signed Impressions: Service Date/Time: Monday, October 24, 2016 13:04 - CONCLUSION: No acute disease. Orlin Ross MD FACR CT Angiography 10/22/16 0000 Signed Impressions: Service Date/Time: Saturday, October 22, 2016 18:00 - CONCLUSION: No pulmonary embolus or other acute cardiopulmonary disease demonstrated. Emphysema and left ventricular hypertrophy noted. Jack Bailey MD Last 24 hours Impressions Chest X-Ray 10/22/16 1516 Signed Impressions: Service Date/Time: Saturday, October 22, 2016 15:36 - CONCLUSION: 1. No acute cardiopulmonary disease. Vadim Archuleta MD CT Angiography 10/22/16 0000 Signed Impressions: Service Date/Time: Saturday, October 22, 2016 18:00 - CONCLUSION: No pulmonary embolus or other acute cardiopulmonary disease demonstrated. Emphysema and left ventricular hypertrophy noted. Jack Bailey MD Objective Remarks General: NAD, AAOx3 Chest: End expiratory wheeze bilaterally Cardiac: Regular Abd: +BS, soft ND/NT Ext: No edema A/P Problem List: (1) COPD exacerbation Status: Acute Plan: - Pt is a 61 y/o female with Lupus and COPD who was admitted on 10/22 for COPD exacerbation. - She developed shortness of breath and cough and cold symptoms several days prior to admission, was evaluated at the [facility] and was placed on Levaquin, prednisone, and advised to use her albuterol nebulizers/inhalers at home. She did not have any clinical improvement and this prompted her admission to [facility]. - Pt was started on Solumedrol, Duonebs, Levaquin and Clindamycin - CTA (10/22) --> Neg for PE or other acute cardiopulmonary disease. Emphysema and LV hypertrophy noted. - Cont Claritin for post nasal drip - 2D echo (10/24) --> LV systolic function was low normal with EF 50-55%, normal LV size, wall thickness was normal. - Pt is off supplemental O2 and on RA - Ultram PRn for pleuritic pain - Xanax PRN - DVT prophylaxis (2) Lupus Status: Chronic Assessment and Plan Patient examined. Assessment and plan formulated with Barby Perze PA-C. I agree with the above. Barby Perez Oct 24, 2016 15:26 Fransisco Hall DO Oct 28, 2016 16:17
[2016-10-24] MEDS ORDERED: ACETAMINOPHEN 500 MG CPLT PO PRN (16:00)
[2016-10-24] MEDS: methylPREDNISolone SOD SUCC 40 MG/1 ML VIAL IV PUSH SCH ×2 (17:51→22:53)
[2016-10-24] MEDS: traMADol HCL 50 MG TAB PO PRN (17:51)
[2016-10-24] MEDS: ALPRAZolam 0.25 MG TAB PO PRN (22:53)
[2016-10-25] VITALS (10 sets, daily range): BP systolic 123–158; BP diastolic 57–76; PULSE 58–92; RESP 18–20; TEMP 97.7–98.7; O2SAT 91–98
[2016-10-25] MEDS: CLINDAMYCIN INJ 600 MG in SODIUM CHLORIDE 0.9% INJ 100 ML IV SCH (06:00)
[2016-10-25] MEDS: methylPREDNISolone SOD SUCC 40 MG/1 ML VIAL IV PUSH SCH ×2 (06:00→12:56)
[2016-10-25] MEDS: LEVOFLOXACIN 500 MG TAB PO SCH (08:11)
[2016-10-25] MEDS: HYDROXYCHLOROQUINE SULFATE 200 MG TAB PO SCH ×2 (08:11→20:43)
[2016-10-25] MEDS: SODIUM CHLORIDE 0.9% FLUSH 10 ML FLUSH IV FLUSH SCH ×2 (08:11→20:44)
[2016-10-25] MEDS: LORATADINE 10 MG TAB PO SCH (08:11)
[2016-10-25] MEDS: DOCUSATE SODIUM 50 MG/SENNA 8.6 MG TAB PO SCH ×2 (08:12→20:43)
[2016-10-25] MEDS: RESP: ALBUTEROL 2.5 MG/IPRATROPIUM 0.5 MG NEB (SCH) NEB ×4 (08:35→19:04)
[2016-10-25] MEDS: traMADol HCL 50 MG TAB PO PRN ×2 (10:13→20:43)
--- NOTE | 2016-10-25 15:04 | HHI.PR ---
Subjective Remarks Pt states that she is feeling better since the PFT that were performed today. She thinks she felt something "pop" and her breathing seemed to be a little easier. Pt is getting a breathing treatment at the time of evaluation. Objective Vitals Vital Signs Date Time Temp Pulse Resp B/P Pulse Ox O2 Delivery O2 Flow Rate FiO2 10/25/16 14:12 70 10/25/16 12:05 98.0 58 18 147/72 96 10/25/16 11:50 18 10/25/16 10:17 94 Nasal Cannula 2.00 10/25/16 08:37 97.7 75 19 141/65 94 10/25/16 08:35 97 Nasal Cannula 2.00 10/25/16 04:00 98.3 73 20 123/57 98 10/25/16 00:00 Nasal Cannula 2.00 Humidified 10/25/16 00:00 98.4 83 18 129/63 95 10/24/16 20:30 95 Nasal Cannula 2.00 10/24/16 20:00 96 10/24/16 20:00 Nasal Cannula 2.00 Humidified 10/24/16 20:00 98.5 95 18 133/59 92 10/24/16 17:56 95 Nasal Cannula 2.00 10/24/16 16:17 98.5 91 18 145/73 95 10/24/16 10/24/16 10/25/16 15:00 23:00 07:00 Intake Total 480 ml 240 ml 0 ml Balance 480 ml 240 ml 0 ml Intake Oral 480 ml 240 ml 0 ml # Voids 3 1 0 # Bowel Movements 0 0 0 Result Diagram: 10/22/16 1520 10/22/16 1520 Other Results Laboratory Tests Test 10/24/16 13:30 Blood Gas Puncture Site RT RADIAL Blood Gas Patient Temperature 98.6 Blood Gas HCO3 29 mmol/L Blood Gas Base Excess 5.4 mmol/L Blood Gas Oxygen Saturation 94 % Arterial Blood pH 7.46 Arterial Blood Partial 42 mmHg Pressure CO2 Arterial Blood Partial 76 mmHg Pressure O2 Arterial Blood Oxygen Content 16.8 Vol % Arterial Blood 0.9 % Carboxyhemoglobin Arterial Blood Methemoglobin 1.0 % Blood Gas Hemoglobin 12.7 G/DL Oxygen Delivery Device NASAL CANNULA Blood Gas Liter Flow 2 L/M Imaging Last Impressions Chest X-Ray 10/24/16 0000 Signed Impressions: Service Date/Time: Monday, October 24, 2016 13:04 - CONCLUSION: No acute disease. Orlin Ross MD FACR CT Angiography 10/22/16 0000 Signed Impressions: Service Date/Time: Saturday, October 22, 2016 18:00 - CONCLUSION: No pulmonary embolus or other acute cardiopulmonary disease demonstrated. Emphysema and left ventricular hypertrophy noted. Jack Bailey MD Last 24 hours Impressions Chest X-Ray 10/22/16 1516 Signed Impressions: Service Date/Time: Saturday, October 22, 2016 15:36 - CONCLUSION: 1. No acute cardiopulmonary disease. Vadim Archuleta MD CT Angiography 10/22/16 0000 Signed Impressions: Service Date/Time: Saturday, October 22, 2016 18:00 - CONCLUSION: No pulmonary embolus or other acute cardiopulmonary disease demonstrated. Emphysema and left ventricular hypertrophy noted. Jack Bailey MD Objective Remarks General: NAD, AAOx3 Chest: End expiratory wheeze bilaterally, improved, better aeration bilaterally Cardiac: Regular Abd: +BS, soft ND/NT Ext: No edema A/P Problem List: (1) COPD exacerbation Status: Acute Plan: - Pt is a 61 y/o female with Lupus and COPD who was admitted on 10/22 for COPD exacerbation. - She developed shortness of breath and cough and cold symptoms several days prior to admission, was evaluated at the [facility] and was placed on Levaquin, prednisone, and advised to use her albuterol nebulizers/inhalers at home. She did not have any clinical improvement and this prompted her admission to [facility]. - Pt was started on Solumedrol, Duonebs, Levaquin and Clindamycin. - CTA (10/22) --> Neg for PE or other acute cardiopulmonary disease. Emphysema and LV hypertrophy noted. - Cont Claritin for post nasal drip - 2D echo (10/24) --> LV systolic function was low normal with EF 50-55%, normal LV size, wall thickness was normal. - Ultram PRN for pleuritic pain - Stop the Clindamycin, continue the Levaquin - Pt wants to try to be discharged tomorrow so we will convert to oral Prednisone 20mg po BID this evening. - She normally uses supplemental O2 at night. - Xanax PRN - DVT prophylaxis (2) Lupus Status: Chronic Assessment and Plan Patient examined. Assessment and plan formulated with Barby Perez PA-C. I agree with the above. Barby Perez Oct 25, 2016 15:04 Fransisco Hall DO Oct 28, 2016 16:17
--- NOTE | 2016-10-25 18:16 | HHI.PR ---
Subjective Remarks Less SOB . Has improved today.NO fever. CXR was clear. Objective Vital Signs Date Time Temp Pulse Resp B/P Pulse Ox O2 Delivery O2 Flow Rate FiO2 10/25/16 16:37 97.9 92 18 158/72 96 10/25/16 15:11 70 10/25/16 15:06 91 Nasal Cannula 2.00 10/25/16 14:12 70 10/25/16 12:05 98.0 58 18 147/72 96 10/25/16 11:50 18 10/25/16 10:17 94 Nasal Cannula 2.00 10/25/16 08:37 97.7 75 19 141/65 94 10/25/16 08:35 97 Nasal Cannula 2.00 10/25/16 04:00 98.3 73 20 123/57 98 10/25/16 00:00 Nasal Cannula 2.00 Humidified 10/25/16 00:00 98.4 83 18 129/63 95 10/24/16 20:30 95 Nasal Cannula 2.00 10/24/16 20:00 96 10/24/16 20:00 Nasal Cannula 2.00 Humidified 10/24/16 20:00 98.5 95 18 133/59 92 I/O 10/24/16 10/24/16 10/24/16 10/25/16 10/25/16 10/25/16 07:00 15:00 23:00 07:00 15:00 23:00 Intake Total 244 ml 480 ml 240 ml 0 ml 720 ml 100 ml Balance 244 ml 480 ml 240 ml 0 ml 720 ml 100 ml Intake Oral 240 ml 480 ml 240 ml 0 ml 720 ml IV Total 4 ml 100 ml # Voids 4 3 1 0 3 # Bowel Movements 0 0 0 0 1 Result Diagram: 10/22/16 1520 10/22/16 1520 Objective Remarks GENERAL: An averagely built middle-aged white female in no acute distress. HEENT: Head normocephalic. Pupils are reactive. Tongue is moist. Nasal mucosae edematous. Throat is injected. Ears - no inflammation. NECK: Supple. No venous distension. Trachea midline. CHEST: Equal movements with percussion note resonant throughout. Breath sounds are distant with occasional wheezes and no crackles on either side. HEART: The heart sounds are irregular. S1 and S2. No murmur. No S3. ABDOMEN: Soft, protuberant. No masses, no organomegaly or tenderness. The bowel sounds are active. EXTREMITIES: No edema. Reflexes 1+. No gross motor deficits. Cranial nerves are grossly intact. RECTAL: Exam is deferred. Assessment and Plan Assessment and Plan IMPRESSION 1. COPD and acute exacerbation. 2. History of systemic lupus. 3. Reactive airways. 4. Anxiety Plan : 1. Cont antibiotics.and switch to levaquin 500mg Po for 5 days 2. O2 at 2 L. 3. D/C Solumedrol and IV Clindamycin 4. Add Xanax .25 mg qid prn 5. Prednisone 20 mg bid and taper over 2 weeks 6. Home in am. Sudeep Coronado MD Oct 25, 2016 18:16
[2016-10-25] MEDS: predniSONE 20 MG TAB PO SCH (20:43)
[2016-10-25] MEDS: ALPRAZolam 0.25 MG TAB PO PRN (20:43)
[2016-10-26] VITALS (8 sets, daily range): BP systolic 119–157; BP diastolic 62–75; PULSE 72–86; RESP 16–20; TEMP 97.8–98.5; O2SAT 89–98
[2016-10-26] MEDS: LORATADINE 10 MG TAB PO SCH (08:15)
[2016-10-26] MEDS: DOCUSATE SODIUM 50 MG/SENNA 8.6 MG TAB PO SCH (08:15)
[2016-10-26] MEDS: LEVOFLOXACIN 500 MG TAB PO SCH (08:15)
[2016-10-26] MEDS: predniSONE 20 MG TAB PO SCH (08:15)
[2016-10-26] MEDS: SODIUM CHLORIDE 0.9% FLUSH 10 ML FLUSH IV FLUSH SCH (08:16)
[2016-10-26] MEDS: RESP: ALBUTEROL 2.5 MG/IPRATROPIUM 0.5 MG NEB (SCH) NEB ×3 (08:44→15:40)
--- NOTE | 2016-10-26 13:12 | HHI.PR ---
Subjective Remarks Walked in halls . Has improved further.NO SOB with exertion. Needs O2 . Objective Vital Signs Date Time Temp Pulse Resp B/P Pulse Ox O2 Delivery O2 Flow Rate FiO2 10/26/16 12:00 98.2 86 20 148/71 98 10/26/16 10:48 96 Nasal Cannula 2.00 10/26/16 08:47 96 Nasal Cannula 4.00 10/26/16 08:00 Nasal Cannula 2.00 10/26/16 08:00 98.1 75 20 157/75 89 10/26/16 04:30 97.8 77 16 120/65 97 10/26/16 00:00 98.0 72 18 119/62 98 10/25/16 21:43 16 10/25/16 20:00 98.7 92 19 152/76 94 10/25/16 20:00 94 Nasal Cannula 2.00 10/25/16 16:37 97.9 92 18 158/72 96 10/25/16 15:11 70 10/25/16 15:06 91 Nasal Cannula 2.00 10/25/16 14:12 70 I/O 10/25/16 10/25/16 10/25/16 10/26/16 10/26/16 10/26/16 07:00 15:00 23:00 07:00 15:00 23:00 Intake Total 0 ml 720 ml 580 ml 500 ml Output Total 500 ml 650 ml Balance 0 ml 720 ml 80 ml -150 ml Intake Oral 0 ml 720 ml 480 ml 500 ml IV Total 100 ml Output Urine Total 500 ml 650 ml # Voids 0 3 # Bowel Movements 0 1 0 0 Result Diagram: 10/22/16 1520 10/22/16 1520 Objective Remarks GENERAL: An averagely built middle-aged white female in no acute distress. HEENT: Head normocephalic. Pupils are reactive. Tongue is moist. Nasal mucosae clear. Throat is clear. Ears - no inflammation. NECK: Supple. No venous distension. Trachea midline. CHEST: Equal movements with percussion note resonant throughout. Breath sounds are distant with occasional wheezes . HEART: The heart sounds are irregular. S1 and S2. No murmur. No S3. ABDOMEN: Soft, protuberant. No masses, no organomegaly or tenderness. The bowel sounds are active. EXTREMITIES: No edema. Reflexes 1+. No gross motor deficits. Cranial nerves are grossly intact. RECTAL: Exam is deferred. Assessment and Plan Assessment and Plan IMPRESSION 1. COPD and acute exacerbation. 2. History of systemic lupus. 3. Reactive airways. 4. Anxiety Plan : 1. levaquin 500mg Po for 5 days 2. O2 at 2 L. 3. Home per Dr Hall 4. Add Xanax .25 mg qid prn 5. Prednisone 20 mg bid and taper over 2 weeks 6. Will see as OP in 2 weeks Sudeep Coronado MD Oct 26, 2016 13:12
[2016-10-26] MEDS: HYDROXYCHLOROQUINE SULFATE 200 MG TAB PO SCH (14:20)
[2016-10-26] MEDS: traMADol HCL 50 MG TAB PO PRN (14:23)
[2016-10-26] MEDS ORDERED: PRED20 PO ×2 (14:49→15:43)
--- NOTE | 2016-10-26 15:20 | HHI.DCPOC ---
Discharge Care Plan Diagnosis: (1) COPD exacerbation (2) Hypoxia (3) Lupus Goals to Promote Your Health - Pt will complete a steroid taper of 20mg twice daily as prescribed by Dr. Alf Rousseau - Pt is to continue to use nebulizer breathing treatments every four times daily for the next 5 days, then can be used every 4-5 hours as needed for any SOB/wheezing. - She is to complete another 5 days of Levaquin 500mg once daily - She will need to followup with Dr. Coronado in 2 weeks, call for an appt. - Pt will need to followup with her PCP, Dr. Montana, in 1 week, call for an appt. Directions to Meet Your Goals Take your medications as prescribed Follow your dietary instruction Follow activity as directed Keep your appointments as scheduled Take your immunizations and boosters as scheduled If your symptoms worsen call your PCP, if no PCP go to Urgent Care Center or Emergency Room Smoking is Dangerous to Your Health. Avoid second hand smoke Call the 24-hour hour crisis hotline for domestic abuse at Barby Perez Oct 26, 2016 15:20 Fransisco Hall DO Oct 28, 2016 16:18
[2016-10-26] MEDS ORDERED: LEVA500T20 PO (15:22)
--- NOTE | 2016-10-26 15:27 | HHI.DS ---
Discharge Summary Admission Date Oct 22, 2016 at 19:00 Discharge Date: Oct 26, 2016 Admitting Diagnosis COPD exacerbation fell outpatient therapy, dyspnea (1) COPD exacerbation Diagnosis: Principal (2) Lupus Diagnosis: Secondary Consultants Dr. Jack Coronado - Pulmonology Brief History The patient is a 61-year-old female who presents emergency department for shortness of breath. The patient states she developed shortness of breath and cough and cold symptoms several days ago, was evaluated at the [facility] walk-in clinic by Dr. Delvalle. The patient was placed on Levaquin, prednisone, and advised to use her albuterol nebulizers/inhalers at home. The patient has been taken her medications as directed, however, states her symptoms are progressing. The patient called her bank vault attendant this morning, Dr. Holden, who referred her to the emergency department for further evaluation. The patient does have a history of COPD, quit smoking 2 years ago. She also has a history of lupus for which she takes Plaquenil. The patient denies any known history congestive heart failure, pulmonary embolism, DVT, or coronary artery disease. Patient does have a dry, nonproductive cough, denies any associated chest pain, nausea, vomiting, diarrhea, or abdominal pain. Despite treatment in ER remained short of breath and will be admitted for continued treatment. CBC/BMP: 10/22/16 1520 10/22/16 1520 Significant Findings Laboratory Tests Test 10/24/16 13:30 Blood Gas HCO3 29 mmol/L (22-26) Blood Gas Base Excess 5.4 mmol/L (-2-2) Arterial Blood pH 7.46 (7.380-7.420) Imaging Last Impressions Chest X-Ray 10/24/16 0000 Signed Impressions: Service Date/Time: Monday, October 24, 2016 13:04 - CONCLUSION: No acute disease. Orlin Ross MD FACR CT Angiography 10/22/16 0000 Signed Impressions: Service Date/Time: Saturday, October 22, 2016 18:00 - CONCLUSION: No pulmonary embolus or other acute cardiopulmonary disease demonstrated. Emphysema and left ventricular hypertrophy noted. Jack Bailey MD PE at Discharge General: NAD, AAOx3 Chest: End expiratory wheeze bilaterally, improved, better aeration bilaterally Cardiac: Regular Abd: +BS, soft ND/NT Ext: No edema Hospital Course Pt is a 61 y/o female with Lupus and COPD who was admitted on 10/22 for COPD exacerbation. She developed shortness of breath and cough and cold symptoms several days prior to admission, was evaluated at the [facility] and was placed on Levaquin, prednisone, and advised to use her albuterol nebulizers/inhalers at home. She did not have any clinical improvement and this prompted her admission to [facility]. Pt was started on Solu-Medrol, Duonebs, Levaquin and Clindamycin. CTA (10/22) --> Neg for PE or other acute cardiopulmonary disease. Emphysema and LV hypertrophy noted. Pt was started on Claritin for post nasal drip. 2D echo (10/24) --> LV systolic function was low normal with EF 50-55%, normal LV size, wall thickness was normal. Ultram was used PRN for pleuritic pain. Clindamycin was stopped on 10/25 and she was continue on the oral Levaquin. Pt wanted to try to be discharged on 10/26 was convert to oral Prednisone 20mg po BID this evening. She normally uses supplemental O2 at night but she will likely need to continue this during the day as well until this exacerbation is fully treated. Pt will continue Prednisone 20mg twice daily as prescribed by Dr. Coronado. Pt is to continue to use nebulizer breathing treatments every four times daily for the next 5 days, then can be used every 4- 5 hours as needed for any SOB/wheezing. She is to complete another 5 days of Levaquin 500mg once daily. She will need to followup with Dr. Coronado in 2 weeks, call for an appt. Pt will need to followup with her PCP, Dr. [place], in 1 week, call for an appt. Pt Condition on Discharge: Stable Discharge Disposition: Discharge Home Discharge Instructions DIET: Follow Instructions for: Heart Healthy Diet Activities you can perform: Regular-No Restrictions Follow up Referrals: PCP Follow-up - [address] Gurinder Montana Pulmonology - 2 Weeks with Sudeep Coronado MD New Medications: Alprazolam (Xanax) 0.25 Mg Tab 0.25 MG PO Q6H PRN ANXIETY #15 Ref 0 TAB Levofloxacin (Levaquin) 500 Mg Tablet 500 MG PO DAILY copd #5 TAB Prednisone (Prednisone) 20 Mg Tab 20 MG PO BID COPD #90 TAB Tramadol (Ultram) 50 Mg Tab 50 MG PO Q8H PRN pain #15 Ref 0 TAB Continued Medications: Albuterol 8.5 GM Inh (Proair Hfa 8.5 GM Inh) 90 Mcg/Act Aer 2 PUFF INH Q4-6H 108 mcg/actuation PRN SHORTNESS OF BREATH #1 Ref 0 INHALER Albuterol Neb (Albuterol Neb) 2.5 Mg/0.5 Ml Neb 2.5 MG NEB Q6HR NEB Note: The Albuterol Sulfate Inhalation Solution is concentrated and must be diluted. Read complete instructions carefully before using. BOX Hydroxychloroquine (Plaquenil) 200 Mg Tab 600 MG PO DAILY Take with food #30 Ref 0 TAB Discontinued Medications: Levofloxacin (Levofloxacin) 500 Mg Tablet 500 MG PO DAILY Infection Ref 0 TAB Prednisone (Prednisone) 10 Mg Tab 10 MG PO DIRECTED Ref 0 TAB Additional Information Patient examined. Assessment and plan formulated with Barby Perez PA-C. I agree with the above. Barby Perez Oct 26, 2016 15:27 Fransisco Hall DO Oct 28, 2016 16:18
[2016-10-26] MEDS ORDERED: ULTR50TA5 PO (15:47)
[2016-10-26] MEDS ORDERED: ALPR.25 PO (15:47)
== END 2016-10-26 16:30 | disposition home or self-care (01) | DRG 192 ==
LOC: NEPE 14:57 → NEDA 19:00 → N04A 21:05
PROVIDERS: ADMIT Hospitalist; ATTEND Hospitalist
DX: J44.1 Chronic obstructive pulmonary disease with (acute) exacerbation (principal); M32.9 Systemic lupus erythematosus, unspecified; R09.02 Hypoxemia; I51.7 Cardiomegaly; F41.9 Anxiety disorder, unspecified; Z87.891 Personal history of nicotine dependence
CPT/HCPCS: 36600; 71010; 71275; 80053; 82550; 82552; 82805; 83605; 83735; 83880; 84484; 85025; 85610; 85730; 87040; 93005; 93306; 94060; 94640; 94664; 96361; 96374; J2920; J2930; J7030; J7512; Q9967

== ENCOUNTER 2016-12-23 11:55 | Emergency (ER) | payer OTHER ==
[~2016-12-23] VITALS: Ht 162.6 cm; Wt 44.5 kg
[~2016-12-23 11:55] MED LIST changes: +ALBU.5I NEB; +ALBUAER3 INH; +ALPR.25 PO; -BENZ1CAP34 PO; -CEPH500C3 PO; -DOXY100T PO; -HYDR200T42 PO; -IPRAAER IN; +LEVA500T20 PO; -LORTA5 PO; -OSEL75 PO; +PLAQ200T PO; +PRED20 PO; -TUSSSUS PO; +ULTR50TA5 PO
[2016-12-23 11:58] VITALS: BP 116/76; PULSE 115; RESP 14; TEMP 98.2; O2SAT 98
[2016-12-23] MEDS ORDERED: SODIUM CHLOR 0.9% 1000 ML INJ 1,000 ML IV SCH (12:24)
[2016-12-23] MEDS ORDERED: ONDANSETRON HCL 4 MG/2 ML VIAL IV PUSH ONE ×2 (12:30→16:00)
[2016-12-23] MEDS ORDERED: SODIUM CHLORIDE 0.9% FLUSH 10 ML FLUSH IV FLUSH PRN (12:30)
--- NOTE | 2016-12-23 12:50 | PD ---
HPI Chief Complaint: GI Complaint Time Seen by Provider: 12:11 Travel History International Travel<30 days: No Contact w/Intl Traveler<30days: No Traveled to known affect area: No History of Present Illness HPI The patient is a 61-year-old female who presents to the emergency department from her co pilot office, Dr. Quispe. The patient has a history over the last month of epigastric abdominal pain that is intermittent and is associated with persistent nausea and vomiting. The patient states she is hungry, but is unable to tolerate any oral intake including water secondary to persistent nausea and vomiting. The patient estimates a 15 pound weight loss over the last 2 weeks secondary to poor oral intake from persistent nausea/ vomiting. The patient was seen by her co pilot earlier today who referred the patient to the emergency department for laboratory evaluation and CT of the abdomen and pelvis. The patient was scheduled for an outpatient endoscopy and colonoscopy next week. The patient denies any previous abdominal surgeries. The patient does have a history of tobacco use, quit smoking 2 years ago. The patient states her last colonoscopy was 5 years ago, she had a few colon polyps, however, no cancer was detected. She denies any history of cancer or pancreatitis. Patient denies any fever, chills, or sweats. Symptoms are moderate without any alleviating or exacerbating factors. PFSH Past Medical History Medical History: Denies Significant Hx Hx Anticoagulant Therapy: Yes (EXCEDRIN DAILY ) Autoimmune Disease: Yes (DISCOID LUPUS) Blood Disorders: No Cancer: No COPD: Yes Endocrine: No Genitourinary: Yes (has lupus so prone to kidney infec) Musculoskeletal: No Neurologic: No Psychiatric: No Reproductive: No Respiratory: Yes (COPD, uses O2 @ HS) ?: Not Menopausal: Yes Past Surgical History Surgical History: No Previous Surgery Other Surgery: Yes ( EYELIDS, PLASTIC SURGERY) Social History Alcohol Use: No Tobacco Use: No (PACK PER DAY) Substance Use: No Allergies-Medications (Allergen,Severity, Reaction): Coded Allergies: penicillin G (Unverified Allergy, Severe, UNKNOWN REACTION, 12/23/16) codeine (Unverified Adverse Reaction, Severe, VOMITING, DIARRHEA, 12/23/16) erythromycin base (Unverified Adverse Reaction, Severe, VOMITING, DIARRHEA , 12/23/16) Reported Meds & Prescriptions Reported Meds & Active Scripts Active Xanax (Alprazolam) 0.25 Mg Tab 0.25 Mg PO Q6H PRN Reported Proair Hfa 8.5 GM Inh (Albuterol Sulfate) 90 Mcg/Act Aer 2 Puff INH Q4-6H PRN 108 mcg/actuation Albuterol Neb (Albuterol Sulfate) 2.5 Mg/0.5 Ml Neb 2.5 Mg NEB Q6HR NEB Note: The Albuterol Sulfate Inhalation Solution is concentrated and must be diluted. Read complete instructions carefully before using. Plaquenil (Hydroxychloroquine Sulfate) 200 Mg Tab 600 Mg PO DAILY Take with food Review of Systems Except as stated in HPI: all other systems reviewed are Neg General / Constitutional: Positive: Weight Loss, No: Fever Cardiovascular: No: Chest Pain or Discomfort Respiratory: No: Shortness of Breath Gastrointestinal: Positive: Nausea, Vomiting, Abdominal Pain, No: Diarrhea Musculoskeletal: No: Weakness Neurologic: No: Dizziness Psychiatric: No: Substance Abuse Physical Exam Narrative GENERAL: Awake, alert, pleasant 61-year-old female who appears her stated age and is in no acute respiratory distress. SKIN: Focused skin assessment warm/dry. HEAD: Atraumatic. Normocephalic. EYES: Pupils equal and round. No scleral icterus. No injection or drainage. ENT: No nasal bleeding or discharge. Dry mucous membranes. NECK: Trachea midline. No JVD. CARDIOVASCULAR: Regular, tachycardic with a heart rate of 115. RESPIRATORY: No accessory muscle use. Clear to auscultation. Breath sounds equal bilaterally. GASTROINTESTINAL: Abdomen soft, minimal epigastric tenderness. No rebound tenderness or guarding. MUSCULOSKELETAL: No obvious deformities. No clubbing. No cyanosis. No edema. NEUROLOGICAL: Awake and alert. No obvious cranial nerve deficits. Motor grossly within normal limits. Normal speech. PSYCHIATRIC: Appropriate mood and affect; insight and judgment normal. Data Data Last Documented VS Vital Signs Date Time Temp Pulse Resp B/P Pulse Ox O2 Delivery O2 Flow Rate FiO2 12/23/16 11:58 98.2 115 14 116/76 98 Orders Complete Blood Count With Diff (12/23/16 12:24) Comprehensive Metabolic Panel (12/23/16 12:24) Lipase (12/23/16 12:24) Lactic Acid (12/23/16 12:24) Urinalysis - C+S If Indicated (12/23/16 12:24) Ct Abd/Pel W Iv Contrast(Rout) (12/23/16 12:24) Iv Access Insert/Monitor (12/23/16 12:24) Ecg Monitoring (12/23/16 12:24) Oximetry (12/23/16 12:24) Sodium Chlor 0.9% 1000 Ml Inj (Ns 1000 M (12/23/16 12:24) Sodium Chloride 0.9% Flush (Ns Flush) (12/23/16 12:30) Ondansetron Inj (Zofran Inj) (12/23/16 12:30) Sodium Chlor 0.9% 1000 Ml Inj (Ns 1000 M (12/23/16 14:15) Iohexol 350 Inj (Omnipaque 350 Inj) (12/23/16 14:40) Ns (Bolus) Inj (12/23/16 16:00) Morphine Inj (Morphine Inj) (12/23/16 16:00) Ondansetron Inj (Zofran Inj) (12/23/16 16:00) Labs Laboratory Tests Test 12/23/16 12/23/16 12:41 13:59 White Blood Count 8.0 TH/MM3 Red Blood Count 4.73 MIL/MM3 Hemoglobin 13.8 GM/DL Hematocrit 41.1 % Mean Corpuscular Volume 87.0 FL Mean Corpuscular Hemoglobin 29.1 PG Mean Corpuscular Hemoglobin 33.4 % Concent Red Cell Distribution Width 13.0 % Platelet Count 293 TH/MM3 Mean Platelet Volume 9.5 FL Neutrophils (%) (Auto) 81.8 % Lymphocytes (%) (Auto) 10.5 % Monocytes (%) (Auto) 6.7 % Eosinophils (%) (Auto) 0.6 % Basophils (%) (Auto) 0.4 % Neutrophils # (Auto) 6.6 TH/MM3 Lymphocytes # (Auto) 0.8 TH/MM3 Monocytes # (Auto) 0.5 TH/MM3 Eosinophils # (Auto) 0.1 TH/MM3 Basophils # (Auto) 0.0 TH/MM3 CBC Comment DIFF FINAL Differential Comment Sodium Level 138 MEQ/L Potassium Level 4.1 MEQ/L Chloride Level 102 MEQ/L Carbon Dioxide Level 29.8 MEQ/L Anion Gap 6 MEQ/L Blood Urea Nitrogen 11 MG/DL Creatinine 0.61 MG/DL Estimat Glomerular Filtration 100 ML/MIN Rate Random Glucose 74 MG/DL Lactic Acid Level 0.7 mmol/L Calcium Level 8.9 MG/DL Total Bilirubin 0.6 MG/DL Aspartate Amino Transf 32 U/L (AST/SGOT) Alanine Aminotransferase 43 U/L (ALT/SGPT) Alkaline Phosphatase 59 U/L Total Protein 6.9 GM/DL Albumin 3.7 GM/DL Lipase 163 U/L Urine Color YELLOW Urine Turbidity CLEAR Urine pH 6.5 Urine Specific [place] 1.017 Urine Protein 30 mg/dL Urine Glucose (UA) NEG mg/dL Urine Ketones 40 mg/dL Urine Occult Blood NEG Urine Nitrite NEG Urine Bilirubin NEG Urine Urobilinogen LESS THAN 2.0 MG/DL Urine Leukocyte Esterase NEG Urine RBC 1 /hpf Urine WBC 1 /hpf Urine Mucus MOD /lpf Microscopic Urinalysis Comment CATH-CULT NOT IND MDM Medical Decision Making Medical Screen Exam Complete: Yes Emergency Medical Condition: Yes Medical Record Reviewed: Yes Interpretation(s) Laboratory Tests Test 12/23/16 12/23/16 12:41 13:59 White Blood Count 8.0 TH/MM3 Red Blood Count 4.73 MIL/MM3 Hemoglobin 13.8 GM/DL Hematocrit 41.1 % Mean Corpuscular Volume 87.0 FL Mean Corpuscular Hemoglobin 29.1 PG Mean Corpuscular Hemoglobin 33.4 % Concent Red Cell Distribution Width 13.0 % Platelet Count 293 TH/MM3 Mean Platelet Volume 9.5 FL Neutrophils (%) (Auto) 81.8 % Lymphocytes (%) (Auto) 10.5 % Monocytes (%) (Auto) 6.7 % Eosinophils (%) (Auto) 0.6 % Basophils (%) (Auto) 0.4 % Neutrophils # (Auto) 6.6 TH/MM3 Lymphocytes # (Auto) 0.8 TH/MM3 Monocytes # (Auto) 0.5 TH/MM3 Eosinophils # (Auto) 0.1 TH/MM3 Basophils # (Auto) 0.0 TH/MM3 CBC Comment DIFF FINAL Differential Comment Sodium Level 138 MEQ/L Potassium Level 4.1 MEQ/L Chloride Level 102 MEQ/L Carbon Dioxide Level 29.8 MEQ/L Anion Gap 6 MEQ/L Blood Urea Nitrogen 11 MG/DL Creatinine 0.61 MG/DL Estimat Glomerular Filtration 100 ML/MIN Rate Random Glucose 74 MG/DL Lactic Acid Level 0.7 mmol/L Calcium Level 8.9 MG/DL Total Bilirubin 0.6 MG/DL Aspartate Amino Transf 32 U/L (AST/SGOT) Alanine Aminotransferase 43 U/L (ALT/SGPT) Alkaline Phosphatase 59 U/L Total Protein 6.9 GM/DL Albumin 3.7 GM/DL Lipase 163 U/L Urine Color YELLOW Urine Turbidity CLEAR Urine pH 6.5 Urine Specific [place] 1.017 Urine Protein 30 mg/dL Urine Glucose (UA) NEG mg/dL Urine Ketones 40 mg/dL Urine Occult Blood NEG Urine Nitrite NEG Urine Bilirubin NEG Urine Urobilinogen LESS THAN 2.0 MG/DL Urine Leukocyte Esterase NEG Urine RBC 1 /hpf Urine WBC 1 /hpf Urine Mucus MOD /lpf Microscopic Urinalysis Comment CATH-CULT NOT IND Differential Diagnosis Differential diagnosis includes gastritis, peptic ulcer disease, pancreatitis, biliary colic, pancreatic cancer, colon cancer, gastroparesis, dehydration, electrolyte abnormality. Narrative Course IV was established, labs are drawn and sent, and the patient was placed on cardiac telemetry monitoring and continuous pulse oximetry monitoring. The patient was administered Zofran 4 mg intravenously and 1 L of IV fluids. CT of the abdomen and pelvis with IV contrast was ordered. Laboratory evaluation is essentially unremarkable except for UA which reveals 40 ketones, white count was normal, LFTs are normal, lactic acid is unremarkable. The patient was administered a second liter of IV fluids, heart rate was reevaluated, came down into the 80s. CT of the abdomen and pelvis was performed, reveals nonspecific, nonobstructive bowel gas pattern which could represent a mild ileus or gastroenteritis. Mild diverticulosis without definitive inflammatory changes of multiple cavernous hemangiomas again noted on the liver. Therefore, a call was placed to the patient's co pilot at 2:48 PM. I discussed the patient with the on-call co pilot, Dr. Cali, who states the patient can be admitted to the medical service, but most likely will not undergo endoscopy/colonoscopy until Monday. I do discussion with the patient, she would prefer to go home as she is already scheduled for outpatient endoscopy next week. The patient was administered a second liter of IV fluids with Zofran and Phenergan. The patient will be discharged home on Zofran, Phenergan, Bentyl, and hydrocodone as needed. She will be provided a copy of her CT results and lab results at discharge for follow-up with her co pilot. Diagnosis Primary Impression: Gastroenteritis Additional Impression: Nausea & vomiting Patient Instructions: General Instructions Additional Instructions: Medications as directed. Follow-up with her co pilot. Please provide the patient a copy of her CT results and lab results at discharge. Return if symptoms worsen or progress. Med/Other Pt SpecificInfo: Prescription(s) given Scripts Hydrocodone-Acetaminophen ([place])5-325 mg Tab1 Tab PO Q6H PRN (PAIN) #12 TAB Ref 0 Prov:Ramo Galicia MD 12/23/16 Dicyclomine (Bentyl)10 Mg Cap10 Mg PO TID PRN (Bowel Management) #15 CAP Ref 0 Prov:Ramo Galicia MD 12/23/16 Promethazine (Phenergan)25 Mg [id number] Mg PO Q6H PRN (NAUSEA OR VOMITING) #12 TAB Ref 0 Prov:Ramo Galicia MD 12/23/16 Ondansetron Odt (Zofran Odt)4 Mg Tab4 Mg SL Q6HR PRN (Nausea/Vomiting) #10 TAB Ref 0 Prov:Ramo Galicia MD 12/23/16 Disposition: 01 DISCHARGE HOME Condition: Stable Ramo Galicia MD Dec 23, 2016 12:50
[2016-12-23 13:10] LABS: AUTOMATED NEUTROPHIL # 6.6 TH/MM3 (1.8-7.7); BASOPHIL % 0.4 % (0.0-2.0); EOSINOPHIL # 0.1 TH/MM3 (0-0.4); EOSINOPHIL % 0.6 % (0.0-4.0); HEMATOCRIT 41.1 % (35.0-46.0); HEMO FLAGS DIFF FINAL; LYMPH % 10.5 % (9.0-44.0); LYMPHOCYTE # 0.8 TH/MM3 (1.0-4.8); MEAN CORPUSCULAR HEMOGLOBIN 29.1 PG (27.0-34.0); MEAN CORPUSCULAR HGB CONC 33.4 % (32.0-36.0); MONO % 6.7 % (0.0-8.0); NEUT % 81.8 % (16.0-70.0); PLATELET COUNT 293 TH/MM3 (150-450); RED BLOOD COUNT 4.73 MIL/MM3 (4.00-5.30)
[2016-12-23 13:38] LABS: ANION GAP 6 MEQ/L (5-15); AST (GOT) 32 U/L (15-37); BICARBONATE 29.8 MEQ/L (21.0-32.0); BLOOD UREA NITROGEN 11 MG/DL (7-18); CHLORIDE 102 MEQ/L (98-107); GLOMERULAR FILTRATION RATE 100 ML/MIN (>89); POTASSIUM 4.1 MEQ/L (3.5-5.1); SODIUM (NA) 138 MEQ/L (136-145)
[2016-12-23 13:41] LABS: ALKALINE PHOSPHATASE 59 U/L (45-117); ALT (GPT) 43 U/L (10-53); TOTAL BILIRUBIN ADULT 0.6 MG/DL (0.2-1.0)
[2016-12-23] MEDS ORDERED: SODIUM CHLOR 0.9% 1000 ML INJ 1,000 ML IV ONE ×2 (14:15→16:00)
[2016-12-23 14:35] LABS: BLOOD, URINE NEG (NEG); COMMENT (UR) CATH-CULT NOT IND; CULTURE IF INDICATED CATH CULTURE NOT IND; GLUCOSE,URINE NEG (NEG); KETONE, URINE 40 mg/dL (NEG); MUCUS URINE MOD /lpf (OCC); NITRITE,URINE NEG (NEG); PH, URINE 6.5 (5.0-8.5); URINE COLOR YELLOW (YELLW/STRAW)
[2016-12-23] MEDS ORDERED: IOHEXOL 350 MG/ML 10 ML VIAL (for RAD DIAG) IV ONE (14:40)
--- NOTE | 2016-12-23 14:46 | RADRPT ---
EXAM DATE/TIME: 12/23/2016 14:23 [place] COMPARISON: CT ABDOMEN & PELVIS W CONTRAST, November 28, 2011, 18:18. INDICATIONS : Cramping, abdominal pain, nausea, vomiting. Weight loss IV CONTRAST: 100 cc Omnipaque 350 (iohexol) IV ORAL CONTRAST: No oral contrast ingested. RADIATION DOSE: 9.96 CTDIvol (mGy) MEDICAL HISTORY : Lupus. Known cavernous hemangiomas in the liver seen on prior CT. Diverticulosis SURGICAL HISTORY : Breast augmentation, eye lid surgery. ENCOUNTER: Initial ACUITY: 2 months PAIN SCALE: 4/10 LOCATION: Bilateral abdominal. TECHNIQUE: Volumetric scanning of the abdomen and pelvis was performed. Using automated exposure control and ad justment of the mA and/or kV according to patient size, radiation dose was kept as low as reasonably achievable to obtain optimal diagnostic quality images. DICOM format image data is available electro nically for review and comparison. FINDINGS: LOWER LUNGS: The visualized lower lungs are clear. LIVER: Homogeneous density with multiple cavernous hemangiomas again noted. There is a small benign cystic s tructure in the right lobe as well which is stable. There is no dilation of the biliary tree. No shivam cified gallstones. SPLEEN: Normal size without lesion. PANCREAS: Within normal limits. KIDNEYS: Normal in size and shape. There is no mass, stone or hydronephrosis. ADRENAL GLANDS: There is a 1.7 x 1.2 cm low density adenoma the right adrenal gland. Left adrenal gland is unremarkab le. VASCULAR: There is no aortic aneurysm. BOWEL/MESENTERY: There is a mildly nonspecific, nonobstructive bowel gas pattern with multiple loops of nondilated sma ll bowel with several small air-fluid levels. Gas and stool is no significant colon. There is a cecil l appendix. There is no free intraperitoneal air or fluid. Multiple diverticuli are present greatest in the sigmoid colon. ABDOMINAL WALL: Within normal limits. RETROPERITONEUM: There is no lymphadenopathy. BLADDER: No wall thickening or mass. REPRODUCTIVE: Within normal limits. INGUINAL: There is no lymphadenopathy or hernia. MUSCULOSKELETAL: Within normal limits for patient age. CONCLUSION: 1. Nonspecific, nonobstructive bowel gas pattern which could represent a mild ileus or gastroenteriti s. 2. Mild diverticulosis without definite inflammatory change. 3. Multiple cavernous hemangiomas again noted liver Piyush Valverde MD on December 23, 2016 at 14:40 Board Certified Radiologist. This report was verified electronically.
[2016-12-23] MEDS ORDERED: MORPHINE SULFATE 4 MG/ML INJ IV PUSH ONE (16:00)
[2016-12-23] MEDS ORDERED: DICY10 PO (16:01)
[2016-12-23] MEDS ORDERED: NORC5TAB PO (16:01)
[2016-12-23] MEDS ORDERED: PROM25TA10 PO (16:01)
[2016-12-23] MEDS ORDERED: ZOFR4TAB3 SL (16:01)
[2016-12-23 17:13] VITALS: BP 112/68
== END 2016-12-23 17:25 | disposition home or self-care (01) ==
LOC: NEPE 11:55
DX: K52.9 Noninfective gastroenteritis and colitis, unspecified (principal); L93.0 Discoid lupus erythematosus; J44.9 Chronic obstructive pulmonary disease, unspecified; Z99.81 Dependence on supplemental oxygen
CPT/HCPCS: 74177; 80053; 81001; 83605; 83690; 85025; 96361; 96374; 96375; 96376; 99285; J2270; J2405; J7030; Q9967

== ENCOUNTER → 2016-12-28 | Day surgery (SDC) | payer OTHER ==
[~2016-12-28] MED LIST changes: +DEXTROSE 5% IN WATE 500 ML INJ 500 ML IV ONE; +DICY10 PO; +LACTATED RINGER'S 1000 ML INJ 1,000 ML ONE; +NORC5TAB PO; +PROM25TA10 PO; +PROPOFOL 500 MG/50 ML BTL IV ONE; +ZOFR4TAB3 SL
--- NOTE | 2016-12-28 11:30 | GIPROC ---
[facility] [address] [facility], [address] EGD PROCEDURE REPORT EXAM DATE: 12/28/2016 PATIENT NAME: Elodia Anderson MR #: [id number] BIRTHDATE: 1955 ATTENDING: Gabbi Quispe MD ORDER #: [id number] TRAFFIC CONTROL SIGNALER: Sylvia Barnard RN STATUS: outpatient INDICATIONS: The patient is a 61 yr old female here for an EGD due to abdominal pain, weight loss, and nausea PROCEDURE PERFORMED: EGD w/ biopsy MEDICATIONS: None and Per Anesthesia. TOPICAL ANESTHETIC: CONSENT: The patient understands the risks and benefits of the procedure and understands that these risks include, but are not limited to: sedation, allergic reaction, infection, perforation and/or bleeding. Alternative means of evaluation and treatment include, among others: physical exam, x-rays, and/or surgical intervention. The patient elects to proceed with this endoscopic procedure. medical equipment was checked for proper function. Hand hygiene and appropriate measures for infection prevention was taken. After the risks, benefits and alternatives of the procedure were thoroughly explained, Informed consent was verified, confirmed and timeout was successfully executed by the treatment team. The patient was anesthetized with topical anesthesia and the EC-[id number] ([id number]) endoscope was introduced through the mouth and advanced to the second portion of the duodenum. Retroflexed views revealed a hiatal hernia The gastroscope was then slowly withdrawn and removed. ESOPHAGUS: There was LA Class A esophagitis noted. A biopsy was performed using cold forceps. Sample sent for histology. STOMACH: There was erythematous moderate gastritis in the gastric body. A biopsy was performed using cold forceps. Sample sent for histology. DUODENUM: Multiple non-bleeding non-bleeding, shallow, irregular shaped and clean-based ulcers, ranging between 3-5 mm in size, were found in the 1st part of the duodenum. Biopsies were taken at edge of the ulcers. ADVERSE EVENTS: There were no complications. IMPRESSIONS: 1. There was LA Class A esophagitis noted; biopsy was performed 2. There was erythematous gastritis in the gastric body; biopsy was performed 3. Multiple non-bleeding ulcers, ranging between 3-5 mm in size, were found in the 1st part of the duodenum; biopsies were taken 4. Retroflexed views revealed a hiatal hernia RECOMMENDATIONS: 1. Await biopsy results. Biopsy results will not be ready for 7-10 days. If you don't hear from us in two weeks, call our office for biopsy results. 2. Anti-reflux regimen 3. Protonix 40mg BID 4. Avoid NSAIDS 5. Follow-up: GI clinic 2 week(s) PATIENT CONDITION: stable DISPOSITION: Home REPEAT EXAM: Return 2 months EGD pending biopsy results Gabbi Quispe MD eSigned: Gabbi Quispe MD 12/28/2016 11:30 AM cc: [facility] M.D[facility] PATIENT NAME: Sangeeta Andersonvinod Milner MR#: [id number]
--- NOTE | 2016-12-28 11:48 | GIPROC ---
[facility] [address] [facility], [address] COLONOSCOPY PROCEDURE REPORT EXAM DATE: 12/28/2016 PATIENT NAME: Elodia Anderson MR #: [id number] BIRTHDATE: 1955 ENDOSCOPIST: Gabbi Quispe MD ORDER #: [id number] SORT SUPERVISOR: Sylvia Barnard RN STATUS: outpatient INDICATIONS: The patient is a 61 yr old female here for a colonoscopy due to abdominal pain, change in bowel habits, and weight loss PROCEDURE PERFORMED: Colonoscopy with biopsy MEDICATIONS: None and Per Anesthesia. PREP QUALITY: The [place] Bowel Prep Score was Right colon 2, Mid colon 2, and Left colon 2. Total = 6. ESTIMATED BLOOD LOSS: None CONSENT: The patient understands the risks and benefits of the procedure and understands that these risks include, but are not limited to: sedation, allergic reaction, infection, perforation and/or bleeding. Alternative means of evaluation and treatment include, among others: physical exam, x-rays, and/or surgical intervention. The patient elects to proceed with this endoscopic procedure. medical equipment was checked for proper function. Hand hygiene and appropriate measures for infection prevention was taken. After the risks, benefits and alternatives of the procedure were thoroughly explained, Informed consent was verified, confirmed and timeout was successfully executed by the treatment team. A digital exam revealed external hemorrhoids The [id number] ([id number]) endoscope was introduced through the anus and advanced to the cecum, which was identified by both the appendix and ileocecal valve. The instrument was then slowly withdrawn as the colon was fully examined. COLON FINDINGS: A large sized circumferential patch of abnormal mucosa was found in the ascending colon. The mucosa was congested, edematous, erythematous, friable, ulcerated and had granularity. This was likely consistent with ulcerative colitis disease. Multiple biopsies were performed using cold forceps. A large sized circumferential diffuse patch of abnormal mucosa was found in the transverse colon. The mucosa was congested, edematous, erythematous and friable. This was likely consistent with ulcerative colitis disease. A biopsy was performed using cold forceps. Retroflexed views revealed internal hemorrhoids and Retroflexed views revealed small internal hemorrhoids The scope was then completely withdrawn from the patient and the procedure terminated. PROCEDURE WITHDRAWAL TIME:7minutes ADVERSE EVENTS: There were no complications. IMPRESSIONS: 1. Large sized circumferential abnormal mucosa was found in the ascending colon; The mucosa was congested, edematous, erythematous, friable, ulcerated and had granularity; multiple biopsies were performed using cold forceps 2. Large sized circumferential diffuse abnormal mucosa was found in the transverse colon; The mucosa was congested, edematous, erythematous and friable; biopsy was performed using cold forceps 3. Retroflexed views revealed internal hemorrhoids 4. Retroflexed views revealed small internal hemorrhoids 5. Revealed external hemorrhoids RECOMMENDATIONS: 1. Await biopsy results. Biopsy results will not be ready for 7-10 days. If you don't hear from us in two weeks, call our office for results. 2. Continue surveillance 3. Yearly hemoccult 4. Asacol 400 mg, two tablets three times a day 5. Prednisone 20 mg bid 6. Follow-up: [facility] 2 week(s) RECALL: Return 6 months Colonoscopy, pending biopsy results Gabbi Quispe MD eSigned: Gabbi Quispe MD 12/28/2016 11:48 AM cc: Gurinder Montana M.D and Carson Espino PATIENT NAME: Elodia Anderson MR#: [id number]
== END | disposition home or self-care (01) ==
LOC: ESDC 09:56
PROVIDERS: ATTEND Internal Medicine Gastroenterology
DX: R10.9 Unspecified abdominal pain (principal); R19.4 Change in bowel habit; R63.4 Abnormal weight loss; R11.0 Nausea; K64.4 Residual hemorrhoidal skin tags; K64.8 Other hemorrhoids; K51.90 Ulcerative colitis, unspecified, without complications; K20.9 Esophagitis, unspecified; K29.70 Gastritis, unspecified, without bleeding; K25.9 Gastric ulcer, unspecified as acute or chronic, without hemorrhage or perforation; K44.9 Diaphragmatic hernia without obstruction or gangrene
CPT/HCPCS: 00740; 00810; 43239; 45380; 82948; 88305; 88312; J7060; J7120; 46930

== ENCOUNTER 2017-05-01 20:40 | Emergency (ER) | payer OTHER ==
[~2017-05-01] VITALS: Ht 162.6 cm; Wt 49.0 kg
[~2017-05-01 20:40] MED LIST changes: -DEXTROSE 5% IN WATE 500 ML INJ 500 ML IV ONE; -LACTATED RINGER'S 1000 ML INJ 1,000 ML ONE; -LEVA500T20 PO; -PRED20 PO; -PROPOFOL 500 MG/50 ML BTL IV ONE; -ULTR50TA5 PO
[2017-05-01] MEDS ORDERED: IOHEXOL 350 MG/ML 10 ML VIAL (for RAD DIAG) IVCONTRAST ONE (20:41)
[2017-05-01 20:47] VITALS: BP 141/71; PULSE 108; RESP 20; TEMP 98.5; O2SAT 97
[2017-05-01] MEDS ORDERED: PRED10 PO (20:54)
[2017-05-01] MEDS ORDERED: CEFU1TAB20 PO (20:54)
[2017-05-01] MEDS ORDERED: ONDANSETRON HCL 4 MG/2 ML VIAL IVP ONE (21:15)
[2017-05-01] MEDS ORDERED: SODIUM CHLORIDE 0.9% FLUSH 10 ML FLUSH IV FLUSH PRN (21:15)
[2017-05-01] MEDS ORDERED: HYDROmorphone HCL PF 2 MG/ML VIAL IV PUSH ONE (21:15)
[2017-05-01 21:42] LABS: AUTOMATED NEUTROPHIL # 14.9 TH/MM3 (1.8-7.7); BASOPHIL % 0.3 % (0.0-2.0); EOSINOPHIL % 0.2 % (0.0-4.0); HEMATOCRIT 38.7 % (35.0-46.0); HEMOGLOBIN 13.1 GM/DL (11.6-15.3); LYMPH % 5.1 % (9.0-44.0); LYMPHOCYTE # 0.9 TH/MM3 (1.0-4.8); MEAN CELL VOLUME 86.8 FL (80.0-100.0); MEAN CORPUSCULAR HEMOGLOBIN 29.3 PG (27.0-34.0); MEAN CORPUSCULAR HGB CONC 33.8 % (32.0-36.0); MEAN PLATELET VOLUME 9.1 FL (7.0-11.0); MONO % 5.8 % (0.0-8.0); NEUT % 88.6 % (16.0-70.0); PLATELET COUNT 212 TH/MM3 (150-450); RED BLOOD COUNT 4.46 MIL/MM3 (4.00-5.30); WHITE BLOOD COUNT 16.8 TH/MM3 (4.0-11.0)
[2017-05-01 22:03] VITALS: RESP 20
[2017-05-01 22:05] LABS: ALBUMIN 3.8 GM/DL (3.4-5.0); AST (GOT) 24 U/L (15-37); BICARBONATE 32.9 MEQ/L (21.0-32.0); BLOOD UREA NITROGEN 32 MG/DL (7-18); CHLORIDE 102 MEQ/L (98-107); CREATININE 0.58 MG/DL (0.50-1.00); GLOMERULAR FILTRATION RATE 105 ML/MIN (>89); GLUCOSE,RANDOM 100 MG/DL (74-106); LIPASE 212 U/L (73-393); PROTHROMBIN TIME - PATIENT 10.1 SEC (9.8-11.6); SODIUM (NA) 138 MEQ/L (136-145)
--- NOTE | 2017-05-01 22:09 | PD ---
HPI . Back pain Chief Complaint: Pain: Acute or Chronic Time Seen by Provider: 20:59 Travel History International Travel<30 days: No Contact w/Intl Traveler<30days: No Traveled to known affect area: No History of Present Illness HPI This patient presents with chief complaint of mid back pain. Onset was 2 weeks ago. She states that it radiates around her rib cage to her epigastrium. It is exacerbated by movement and deep breathing. She rates it 10/10. She saw her primary care provider who described her a prednisone taper and some antibiotics. She states that she has been taking these without relief of her symptoms. She states that she doesn't have any idea what the antibiotic was for. She states that she was told that the prednisone was for inflammation. She denies injury. She denies any GI symptoms such as loss of appetite, vomiting, diarrhea. She has chronic COPD but states that her breathing is at baseline. She has not been running any fevers. She denies any neurological symptoms such as bowel or bladder incontinence, perineal anesthesia, lower extremity weakness or paresthesias. PFSH Past Medical History Hx Anticoagulant Therapy: Yes (EXCEDRIN DAILY ) Autoimmune Disease: Yes (DISCOID LUPUS) Blood Disorders: No Cancer: No Cardiovascular Problems: No COPD: Yes Diabetes: No Patient Takes Glucophage: No Diminished Hearing: No Endocrine: Yes (LUPUS) Gastrointestinal Disorders: No Genitourinary: Yes (has lupus so prone to kidney infec) Musculoskeletal: No Neurologic: No Psychiatric: No Reproductive: No Respiratory: Yes (COPD, uses O2 @ HS) Immunizations Current: Yes Tetanus Vaccination: > 5 Years Influenza Vaccination: No ?: Not Menopausal: Yes : 4 Para: 4 Past Surgical History Other Surgery: Yes ( EYELIDS, PLASTIC SURGERY) Social History Alcohol Use: No Tobacco Use: No (PACK PER DAY) Substance Use: No Allergies-Medications (Allergen,Severity, Reaction): Coded Allergies: penicillin G (Unverified Allergy, Severe, UNKNOWN REACTION, 12/23/16) codeine (Unverified Adverse Reaction, Severe, VOMITING, DIARRHEA, 12/23/16) erythromycin base (Unverified Adverse Reaction, Severe, VOMITING, DIARRHEA , 12/23/16) Reported Meds & Prescriptions Reported Meds & Active Scripts Active Flexeril (Cyclobenzaprine HCl) 10 Mg Tab 10 Mg PO TID [place] (Hydrocodone-Acetaminophen) 5 Mg-325 Mg Tab 1 Tab PO Q4H PRN Xanax (Alprazolam) 0.25 Mg Tab 0.25 Mg PO Q6H PRN Reported Cefuroxime (Cefuroxime Axetil) 500 Mg Tab 500 Mg PO BID Prednisone 10 Mg Tab 10 Mg PO TID Proair Hfa 8.5 GM Inh (Albuterol Sulfate) 90 Mcg/Act Aer 2 Puff INH Q4-6H PRN 108 mcg/actuation Albuterol Neb (Albuterol Sulfate) 2.5 Mg/0.5 Ml Neb 2.5 Mg NEB Q6HR NEB Note: The Albuterol Sulfate Inhalation Solution is concentrated and must be diluted. Read complete instructions carefully before using. Plaquenil (Hydroxychloroquine Sulfate) 200 Mg Tab 600 Mg PO DAILY Take with food Review of Systems Except as stated in HPI: all other systems reviewed are Neg General / Constitutional: No: Fever, Chills Cardiovascular: No: Chest Pain or Discomfort Respiratory: Positive: Shortness of Breath Gastrointestinal: Positive: Abdominal Pain, No: Nausea (chronic shortness of breath. No change.), Vomiting, Diarrhea Genitourinary: No: Urgency, Frequency, Dysuria Musculoskeletal: Positive: Pain (mid back pain) Neurologic: No: Weakness, Focal Abnormalities, Paresthesia, Incontinence Physical Exam Narrative GENERAL: Thin, chronically ill-appearing woman who is hyperventilating. SKIN: warm/dry. HEAD: Normocephalic. Atraumatic. EYES: Pupils equal and round. No scleral icterus. No injection or drainage. ENT: No nasal bleeding or discharge. Mucous membranes pink and moist. NECK: Trachea midline. Full range of motion without pain.. CARDIOVASCULAR: Regular rate and rhythm. Heart sounds are normal. RESPIRATORY: No accessory muscle use. Clear to auscultation. Breath sounds equal bilaterally. GASTROINTESTINAL: Abdomen soft. Nontender. Bowel sounds present. Nondistended. No pulsatile abdominal mass palpated. MUSCULOSKELETAL: No obvious deformities. Mid back tenderness. NEUROLOGICAL: Awake and alert. No obvious cranial nerve deficits. Motor grossly within normal limits. Normal speech. PSYCHIATRIC: Appropriate mood and affect; insight and judgment normal. Data Data Last Documented VS Vital Signs Date Time Temp Pulse Resp B/P (MAP) Pulse Ox O2 Delivery O2 Flow Rate FiO2 05/01/17 22:03 20 05/01/17 21:32 Room Air 94 05/01/17 20:47 98.5 108 141/71 (94) 97 Orders Orders Complete Blood Count With Diff (05/01/17 21:08) Comprehensive Metabolic Panel (05/01/17 21:08) Lipase (05/01/17 21:08) Lactic Acid (05/01/17 21:08) Prothrombin Time / Inr (Pt) (05/01/17 21:08) Act Partial Throm Time (Ptt) (05/01/17 21:08) Iv Access Insert/Monitor (05/01/17 21:08) Ecg Monitoring (05/01/17 21:08) Oximetry (05/01/17 21:08) Ondansetron Inj (Zofran Inj) (05/01/17 21:15) Sodium Chloride 0.9% Flush (Ns Flush) (05/01/17 21:15) Electrocardiogram (05/01/17 21:08) Hydromorphone Pf Inj (Dilaudid Pf Inj) (05/01/17 21:15) Cta Thor Abd Aorta W Iv C W3d (05/01/17 ) Sodium Chlor 0.9% 1000 Ml Inj (Ns 1000 M (05/01/17 22:30) Iohexol 350 Inj (Omnipaque 350 Inj) (05/01/17 20:41) Ed Discharge Order (05/01/17 23:52) Labs Laboratory Tests Test 05/01/17 21:30 White Blood Count 16.8 TH/MM3 Red Blood Count 4.46 MIL/MM3 Hemoglobin 13.1 GM/DL Hematocrit 38.7 % Mean Corpuscular Volume 86.8 FL Mean Corpuscular Hemoglobin 29.3 PG Mean Corpuscular Hemoglobin Concent 33.8 % Red Cell Distribution Width 13.0 % Platelet Count 212 TH/MM3 Mean Platelet Volume 9.1 FL Neutrophils (%) (Auto) 88.6 % Lymphocytes (%) (Auto) 5.1 % Monocytes (%) (Auto) 5.8 % Eosinophils (%) (Auto) 0.2 % Basophils (%) (Auto) 0.3 % Neutrophils # (Auto) 14.9 TH/MM3 Lymphocytes # (Auto) 0.9 TH/MM3 Monocytes # (Auto) 1.0 TH/MM3 Eosinophils # (Auto) 0.0 TH/MM3 Basophils # (Auto) 0.0 TH/MM3 CBC Comment DIFF FINAL Differential Comment Prothrombin Time 10.1 SEC Prothromb Time International Ratio 1.0 RATIO Activated Partial Thromboplast Time 20.6 SEC Blood Urea Nitrogen 32 MG/DL Creatinine 0.58 MG/DL Random Glucose 100 MG/DL Total Protein 6.8 GM/DL Albumin 3.8 GM/DL Calcium Level 9.0 MG/DL Alkaline Phosphatase 78 U/L Aspartate Amino Transf (AST/SGOT) 24 U/L Alanine Aminotransferase (ALT/SGPT) 48 U/L Total Bilirubin 0.5 MG/DL Sodium Level 138 MEQ/L Potassium Level 4.5 MEQ/L Chloride Level 102 MEQ/L Carbon Dioxide Level 32.9 MEQ/L Anion Gap 3 MEQ/L Estimat Glomerular Filtration Rate 105 ML/MIN Lactic Acid Level 1.0 mmol/L Lipase 212 U/L MDM Medical Decision Making Medical Screen Exam Complete: Yes Emergency Medical Condition: Yes Medical Record Reviewed: Yes (medical history of lupus and COPD) Interpretation(s) EKG shows a sinus rhythm with a rate of 101. No ST segment elevation or depression. Differential Diagnosis Differential diagnosis includes but is not limited to muscular low back pain, DDD, spinal stenosis, epidural abscess, sciatica, kidney infection or stone. Narrative Course This patient presents with mid back pain that radiates to the epigastrium. She does not have any associated fever or respiratory, GI or neurological symptoms. However, she looks pretty uncomfortable. I have ordered IV analgesics. CBC, CMP, lipase, LA and CTA of the aorta or pending. CBC & BMP Diagram 05/01/17 21:30 Total Protein 6.8, Albumin 3.8, Calcium Level 9.0, Alkaline Phosphatase 78, Aspartate Amino Transf (AST/SGOT) 24, Alanine Aminotransferase (ALT/SGPT) 48, Total Bilirubin 0.5 Her BUN is elevated compared to previous. I have ordered a liter of fluid. I have also done a rectal exam which was Hemoccult negative. She is on steroids which explains the leukocytosis. Last Impressions Aorta CTA 05/01/17 0000 Signed Impressions: Service Date/Time: Monday, May 01, 2017 22:53 - CONCLUSION: 1. Stable hepatic hemangioma, right adrenal adenoma. 2. Endotracheal nodule possibly an associated mucous and follow is suggested with repeat noncontrast chest CT in 6 months since this finding was not present on the CT angiogram from 10/22/2016. 3. No evidence for dissection or aneurysm. Jackelin Upton MD [facility] Point of Care Internal Pos. & Neg. Controls: Passed Fecal Specimen Occult Blood: Negative Diagnosis Primary Impression: Mid back pain Patient Instructions: Narcotic given in the ED Med/Other Pt SpecificInfo: Prescription(s) given Scripts Cyclobenzaprine (Flexeril) 10 Mg Tab 10 MG PO TID for Muscle Spasm, #30 TAB 0 Refills Prov: Lucinda Jack MD 05/01/17 Hydrocodone-Acetaminophen ([place]) 5 Mg-325 Mg Tab 1 TAB PO Q4H Y for PAIN, #12 TAB 0 Refills Prov: Lucinda Jack MD 05/01/17 Disposition: 01 DISCHARGE HOME Condition: Stable Lucinda Jack MD May 01, 2017 22:09
[2017-05-01 22:15] LABS: ALKALINE PHOSPHATASE 78 U/L (45-117); ALT (GPT) 48 U/L (10-53); TOTAL BILIRUBIN ADULT 0.5 MG/DL (0.2-1.0); TOTAL PROTEIN 6.8 GM/DL (6.4-8.2)
[2017-05-01] MEDS ORDERED: SODIUM CHLOR 0.9% 1000 ML INJ 1,000 ML IV ONE (22:30)
[2017-05-01] MEDS ORDERED: NORC5TAB PO (22:40)
[2017-05-01] MEDS ORDERED: CYCL10TA PO (22:40)
--- NOTE | 2017-05-01 23:27 | RADRPT ---
EXAM DATE/TIME: 05/01/2017 22:53 [facility] COMPARISON: CT PULMONARY ANGIOGRAM, October 22, 2016, 18:00. CT ABDOMEN & PELVIS W CONTRAST, December 23, 2016, 14:23 . INDICATIONS : Short of breath, aortic dissection. IV CONTRAST: 80 cc Omnipaque 350 (iohexol) IV RADIATION DOSE: 8.65 CTDIvol (mGy) MEDICAL HISTORY : Chronic obstructive pulmonary disease. Lupus. SURGICAL HISTORY : Breast sx. ENCOUNTER: Initial ACUITY: 2 weeks PAIN SCALE: 10/10 LOCATION: Bilateral chest TECHNIQUE: Volumetric scanning was performed using a multi-row detector CT scanner. The data was post processed with a variety of visualization algorithms including full volume maximum intensity projection, multi -planar sliding thin slab reformation, curved planar reformation, and surface rendering techniques. Using automated exposure control and adjustment of the mA and/or kV according to patient size, radiat ion dose was kept as low as reasonably achievable to obtain optimal diagnostic quality images. DICOM format image data is available electronically for review and comparison. FINDINGS: LUNGS: There is no consolidation or pneumothorax. No concerning pulmonary nodule is visualized. No pleural fluid is present. There is an approximate 1.1 cm intratracheal nodule posteriorly may be inspissated mucus. MEDIASTINUM: No abnormally enlarged lymph nodes by CT criteria. No axillary or hilar abnormalities are identified. ABDOMEN: Approximate 3.1 cm hemangioma right hepatic lobe is again seen and not changed. There is a small appr oximate 1.5 cm right adrenal adenoma are not changed. The kidneys demonstrate no evidence of solid re nal mass or hydronephrosis. No free fluid or abdominal masses are identified. No para-aortic adenopat hy is seen. PELVIS: No evidence of free fluid or pelvic mass. No abnormally enlarged inguinal or retroperitoneal lymph no jarod are present. The bladder is unremarkable. THORACIC AORTA: The thoracic aortic root is normal with normal branching of the great vessels. There is no evidence of aneurysm or dissection. ABDOMINAL AORTA: The aorta is normal in caliber without aneurysm or dissection. The renal arteries are patent bilater ally. The proximal celiac and superior mesenteric arteries are patent and normal in diameter. There are atherosclerotic calcifications of the aorta due to chronic atherosclerotic disease. PELVIC VESSELS: The internal iliac and external iliac vessels are patent without aneurysm or stenosis. CONCLUSION: 1. Stable hepatic hemangioma, right adrenal adenoma. 2. Endotracheal nodule possibly an associated mucous and follow is suggested with repeat noncontrast chest CT in 6 months since this finding was not present on the CT angiogram from 10/22/2016. 3. No evidence for dissection or aneurysm. Jackelin Upton MD on May 01, 2017 at 23:18 Board Certified Radiologist. This report was verified electronically.
--- NOTE | 2017-05-01 23:56 | PD ---
Physical Exam Time Seen by Provider: 23:40 Data Data Last Documented VS Vital Signs Date Time Temp Pulse Resp B/P (MAP) Pulse Ox O2 Delivery O2 Flow Rate FiO2 05/01/17 22:03 20 05/01/17 21:32 Room Air 94 05/01/17 20:47 98.5 108 141/71 (94) 97 Orders Orders Complete Blood Count With Diff (05/01/17 21:08) Comprehensive Metabolic Panel (05/01/17 21:08) Lipase (05/01/17 21:08) Lactic Acid (05/01/17 21:08) Prothrombin Time / Inr (Pt) (05/01/17 21:08) Act Partial Throm Time (Ptt) (05/01/17 21:08) Iv Access Insert/Monitor (05/01/17 21:08) Ecg Monitoring (05/01/17 21:08) Oximetry (05/01/17 21:08) Ondansetron Inj (Zofran Inj) (05/01/17 21:15) Sodium Chloride 0.9% Flush (Ns Flush) (05/01/17 21:15) Electrocardiogram (05/01/17 21:08) Hydromorphone Pf Inj (Dilaudid Pf Inj) (05/01/17 21:15) Cta Thor Abd Aorta W Iv C W3d (05/01/17 ) Sodium Chlor 0.9% 1000 Ml Inj (Ns 1000 M (05/01/17 22:30) Iohexol 350 Inj (Omnipaque 350 Inj) (05/01/17 20:41) Ed Discharge Order (05/01/17 23:52) Labs Laboratory Tests Test 05/01/17 21:30 White Blood Count 16.8 TH/MM3 Red Blood Count 4.46 MIL/MM3 Hemoglobin 13.1 GM/DL Hematocrit 38.7 % Mean Corpuscular Volume 86.8 FL Mean Corpuscular Hemoglobin 29.3 PG Mean Corpuscular Hemoglobin Concent 33.8 % Red Cell Distribution Width 13.0 % Platelet Count 212 TH/MM3 Mean Platelet Volume 9.1 FL Neutrophils (%) (Auto) 88.6 % Lymphocytes (%) (Auto) 5.1 % Monocytes (%) (Auto) 5.8 % Eosinophils (%) (Auto) 0.2 % Basophils (%) (Auto) 0.3 % Neutrophils # (Auto) 14.9 TH/MM3 Lymphocytes # (Auto) 0.9 TH/MM3 Monocytes # (Auto) 1.0 TH/MM3 Eosinophils # (Auto) 0.0 TH/MM3 Basophils # (Auto) 0.0 TH/MM3 CBC Comment DIFF FINAL Differential Comment Prothrombin Time 10.1 SEC Prothromb Time International Ratio 1.0 RATIO Activated Partial Thromboplast Time 20.6 SEC Blood Urea Nitrogen 32 MG/DL Creatinine 0.58 MG/DL Random Glucose 100 MG/DL Total Protein 6.8 GM/DL Albumin 3.8 GM/DL Calcium Level 9.0 MG/DL Alkaline Phosphatase 78 U/L Aspartate Amino Transf (AST/SGOT) 24 U/L Alanine Aminotransferase (ALT/SGPT) 48 U/L Total Bilirubin 0.5 MG/DL Sodium Level 138 MEQ/L Potassium Level 4.5 MEQ/L Chloride Level 102 MEQ/L Carbon Dioxide Level 32.9 MEQ/L Anion Gap 3 MEQ/L Estimat Glomerular Filtration Rate 105 ML/MIN Lactic Acid Level 1.0 mmol/L Lipase 212 U/L [facility] Medical Record Reviewed: Yes Supervised Visit with BRUNO: No Narrative Course Please see previous providers notes for complete history of present illness. I' m following up on lab work imaging studies. Briefly this is a 62-year-old female who has been having mid back pain for 2 weeks that is sharp and worse with movement, occasionally radiating around her rib cage inferior to the breast. On my examination her pain is resolved. She was treated prior to my examination with Dilaudid. CTA of the aorta has been performed revealing no acute abnormalities there is a incidental endotracheal nodule and the radiologist recommends repeat noncontrast CT of the chest in 6 months. Discussed this with the patient. She does have leukocytosis-she reports that she has been on a prednisone taper reportedly prescribed by her primary care physician for some type of infection and this is likely steroid-induced leukocytosis. CMP reveals a BUN of 32. Lactic acid within normal limits. Once again on my examination she is asymptomatic. She is being prescribed a short course of [place] and Flexeril for her back pain and she plans on following up with her primary care physician. She is stable for discharge. Diagnosis Primary Impression: Mid back pain Patient Instructions: Narcotic given in the ED Additional Instruction: Medication as needed. Do not drive or drink alcohol when taking these medications. Follow up with primary care. Return for any emergent medical conditions. Med/Other Pt SpecificInfo: Prescription(s) given Scripts Cyclobenzaprine (Flexeril) 10 Mg Tab 10 MG PO TID for Muscle Spasm, #30 TAB 0 Refills Prov: Lucinda Jack MD 05/01/17 Hydrocodone-Acetaminophen ([place]) 5 Mg-325 Mg Tab 1 TAB PO Q4H Y for PAIN, #12 TAB 0 Refills Prov: Lucinda Jack MD 05/01/17 Disposition: 01 DISCHARGE HOME Condition: Stable Dino Kemp May 01, 2017 23:56
[2017-05-02 00:20] VITALS: BP 135/74; TEMP 98.5
--- NOTE | 2017-05-02 17:24 | EKG ---
Date Performed: 05/01/2017 Time Performed: 21:34:33 PTAGE: 62 years EKG: SINUS TACHYCARDIA Since previous tracing, no significant change noted ABNORMAL RHYTHM ECG PREVIOUS TRACING : 10/22/2016 15.26 DOCTOR: Dominique Tello Interpretating Date/Time 05/02/2017 17:22:27
== END 2017-05-02 00:21 | disposition home or self-care (01) ==
LOC: NEPD 20:40
DX: M54.6 Pain in thoracic spine (principal); J44.9 Chronic obstructive pulmonary disease, unspecified; M32.9 Systemic lupus erythematosus, unspecified; R94.31 Abnormal electrocardiogram [ECG] [EKG]; Z79.01 Long term (current) use of anticoagulants; R00.0 Tachycardia, unspecified
CPT/HCPCS: 71275; 74174; 80053; 83605; 83690; 85025; 85610; 85730; 93005; 96361; 96374; 96375; 99285; J1170; J2405; J7030; Q9967

== ENCOUNTER → 2017-07-12 | Outpatient (CLI) | payer OTHER ==
[~2017-07-12] MED LIST changes: +CALC1TAB87 PO; +CEFU1TAB20 PO; +CRANCAP2 PO; +CYCL10TA PO; -DICY10 PO; +FLUT1INH INH; +OXYGENDME NAS.CANULA; +PANT40TA3 PO; +PRED10 PO; -PROM25TA10 PO; +TRAM50TA PO; +VENTAER INH; -ZOFR4TAB3 SL
== END ==
LOC: CPRE 10:56
PROVIDERS: ATTEND Neurological Surgery
DX: Z01.812 Encounter for preprocedural laboratory examination (principal); Z01.818 Encounter for other preprocedural examination
CPT/HCPCS: 87640; 87641

== ENCOUNTER → 2017-07-14 | Day surgery (SDC) | payer OTHER ==
[~2017-07-14] VITALS: Ht 162.6 cm; Wt 46.4 kg
[~2017-07-14] MED LIST changes: +*MEPERIDINE 25 MG INJ VIAL PERIprocedural Use ONLY ONE; +ACETAMINOPHEN 325 MG TAB ONE; +BUPIVACAINE/EPINEPHRINE 0.5% PF 30 ML VIAL ONE; +CHLORHEXIDINE GLUCONATE 2 % 1 PACK (2 CLOTHS) TOPICAL PRN; +DEXAMETHASONE SOD PHOS 4 MG/ML VIAL IV ONE; +DO NOT ADM ANY ANTICOAGULANT DRUGS PRN; +GLYCOPYRROLATE 1 MG/5 ML SYRINGE IV PUSH ONE; +LACTATED RINGER'S 1000 ML IV PRN; +LIDOCAINE HCL 1% PF 5 ML SYRINGE OTHER ONE; +METOPROLOL TARTRATE 25 MG TAB PO PRN; +MIDAZOLAM HCL 2 MG/2 ML VIAL ONE; +NEOSTIGMINE 5 MG/5 ML SYRINGE IV PUSH ONE; +ONDANSETRON HCL 4 MG/2 ML VIAL IV ONE; +PHENYLEPH/NS 1000 MCG/10 ML SYR IV ONE; +PHENYLEPHRINE HCL 10 MG/ML VIAL IV ONE; +POVIDONE IODINE 5% (ANTISEPSIS KIT) 4 APPLICATIONS EACH NARE PRN; +PROPOFOL 200 MG/20 ML AMP IV ONE; +RESP: ALBUTEROL 1.25 MG/3 ML NEB (PRN) ONE; +ROCURONIUM INJ 50 MG/5 ML SYRINGE IV PUSH ONE; +SODIUM CHLOR 0.9% 1000 ML INJ 1,000 ML IV SCH; +SODIUM CHLORID 0.9% 500 ML IV PRN; +VANCOMYCIN 1,000 MG/NS 250 ML IV SCH
--- NOTE | 2017-07-14 10:15 | PD.OP ---
Gurinder Montana D.O. Operative Report Date of Surgery: Jul 14, 2017 Preoperative Diagnosis: Thoracic T7 and T9 vertebral body compression fractures with intractable back pain Postoperative Diagnosis: Same Procedure: Thoracic T7 and T9 kyphoplasty Anesthesia: Gen. endotracheal by Carolyn humphrey Surgeon: Mark Ball M.D. Drilling Supervisor(s): None Operation and Findings: Following administration of a general endotracheal anesthesia patient was placed in the prone position on chest rolls and Michael table and all pressure points adequate padded. IV antibiotics were administered intravenously and the thoracic area posteriorly prepped with a Betadine solution and painted and draped in the usual sterile fashion. Using AP and lateral arthroscopy guidance the stab incision sites were made at the T7 and T9 levels overlying the left pedicles after infiltrating the skin was 0.5% Marcaine. The Jamshidi needles were then passed into the vertebral body through the pedicles with a lateral to medial trajectory in the midline and with the hand-held drill trajectory created. The drills were then removed and then the balloons were passed into the vertebral body at both levels and dilated to create a cavity and restore vertebral body height. Subsequently the balloons were removed and the cavity packed with the bone cement 3 cc at each level. The guides were then removed and Steri-Strips applied at the puncture wounds along with a sterile dressing. She was then turned in spine position, extubated and taken to the recovery room. There were no intraoperative medications and all sponge and needle count was correct at the end the procedure. Estimated blood loss less than 5 cc. Mark Ball MD Jul 14, 2017 10:15
--- NOTE | 2017-07-14 10:35 | RADRPT ---
EXAM DATE/TIME: 07/14/2017 09:39 [facility] COMPARISON: No previous studies available for comparison. INDICATIONS : Post-op kyphoplasty at T7 and T9 compression fractures. MEDICAL HISTORY : Compression fracture. SURGICAL HISTORY : None. ENCOUNTER: Initial ACUITY: 1 day PAIN SCORE: Non-responsive. LOCATION: Thoracic spine. FINDINGS: Status post kyphoplasty T7 and T9 with cemented spreading across midline with no significant leakage. . CONCLUSION: Kyphoplasty as above Orlin Ross MD FACR on July 14, 2017 at 10:33 Board Certified Radiologist. This report was verified electronically.
[2017-07-14 11:42] VITALS: BP 98/44; PULSE 80; RESP 16; TEMP 98.4; O2SAT 94
== END | disposition home or self-care (01) ==
LOC: HSDC 05:59
PROVIDERS: ATTEND Neurological Surgery
DX: M48.54XA Collapsed vertebra, not elsewhere classified, thoracic region, initial encounter for fracture (principal); J44.9 Chronic obstructive pulmonary disease, unspecified
CPT/HCPCS: 01936; 22513; 22515; 72070; 94664; J1100; J2175; J2250; J2370; J2405; J2710; J3010; J3370; J7050; J7120; J7613

== ENCOUNTER 2017-07-15 03:39 | Emergency (ER) | payer OTHER ==
[~2017-07-15] VITALS: Ht 162.6 cm; Wt 47.0 kg
[~2017-07-15 03:39] MED LIST changes: -*MEPERIDINE 25 MG INJ VIAL PERIprocedural Use ONLY ONE; -ACETAMINOPHEN 325 MG TAB ONE; -ALBUAER3 INH; -ALPR.25 PO; -BUPIVACAINE/EPINEPHRINE 0.5% PF 30 ML VIAL ONE; -CEFU1TAB20 PO; -CHLORHEXIDINE GLUCONATE 2 % 1 PACK (2 CLOTHS) TOPICAL PRN; -CYCL10TA PO; -DEXAMETHASONE SOD PHOS 4 MG/ML VIAL IV ONE; -DO NOT ADM ANY ANTICOAGULANT DRUGS PRN; -GLYCOPYRROLATE 1 MG/5 ML SYRINGE IV PUSH ONE; -LACTATED RINGER'S 1000 ML IV PRN; -LIDOCAINE HCL 1% PF 5 ML SYRINGE OTHER ONE; -METOPROLOL TARTRATE 25 MG TAB PO PRN; -MIDAZOLAM HCL 2 MG/2 ML VIAL ONE; -NEOSTIGMINE 5 MG/5 ML SYRINGE IV PUSH ONE; -NORC5TAB PO; -ONDANSETRON HCL 4 MG/2 ML VIAL IV ONE; -PHENYLEPH/NS 1000 MCG/10 ML SYR IV ONE; -PHENYLEPHRINE HCL 10 MG/ML VIAL IV ONE; -POVIDONE IODINE 5% (ANTISEPSIS KIT) 4 APPLICATIONS EACH NARE PRN; -PRED10 PO; -PROPOFOL 200 MG/20 ML AMP IV ONE; -RESP: ALBUTEROL 1.25 MG/3 ML NEB (PRN) ONE; -ROCURONIUM INJ 50 MG/5 ML SYRINGE IV PUSH ONE; -SODIUM CHLOR 0.9% 1000 ML INJ 1,000 ML IV SCH; -SODIUM CHLORID 0.9% 500 ML IV PRN; -VANCOMYCIN 1,000 MG/NS 250 ML IV SCH
[2017-07-15 03:52] VITALS: BP 134/59; PULSE 95; RESP 26; TEMP 97.5; O2SAT 85
--- NOTE | 2017-07-15 04:34 | RADRPT ---
EXAM DATE/TIME: 07/15/2017 04:15 [facility] COMPARISON: CHEST SINGLE AP, October 24, 2016, 13:04. INDICATIONS : Short of breath. MEDICAL HISTORY : Osteoporosis. SURGICAL HISTORY : Kyphoplasty. ENCOUNTER: Initial ACUITY: 1 day PAIN SCORE: 6/10 LOCATION: Bilateral chest FINDINGS: A single view of the chest demonstrates the lungs to be symmetrically aerated without evidence of mas s, infiltrate or effusion. The cardiomediastinal contours are unremarkable. Osseous structures are intact. CONCLUSION: No evidence of acute cardiopulmonary disease. Jack Bailey MD on July 15, 2017 at 4:32 Board Certified Radiologist. This report was verified electronically.
--- NOTE | 2017-07-15 04:56 | PD ---
HPI Chief Complaint: Respiratory Distress Time Seen by Provider: 04:47 Travel History International Travel<30 days: No Contact w/Intl Traveler<30days: No Traveled to known affect area: No History of Present Illness HPI 62-year-old female patient with history of compression fractures and T7 through T9, had kyphoplasty done yesterday by Dr. Ball, here because she states that she coughed last night and thinks that she may have moved something out of place , had sudden worsening in her back pain. She states that she was short of breath when she got worked up is currently better now and not short of breath. She states it hurts with movement. She denies any fevers or any other issues. Modifying Factors: None Associated Signs & Symptoms: Increased back pain after coughing Risk Factors: Kyphoplasty yesterday PFSH Past Medical History Hx Anticoagulant Therapy: Yes (EXCEDRIN DAILY ) Autoimmune Disease: Yes (DISCOID LUPUS) Blood Disorders: No Cancer: No Cardiovascular Problems: No COPD: Yes Diabetes: No Diminished Hearing: No Endocrine: No Gastrointestinal Disorders: Yes (GERD) Genitourinary: Yes (has lupus so prone to kidney infection) Hepatitis: No Hiatal Hernia: No Immune Disorder: Yes (RA) Musculoskeletal: Yes (arthritis) Neurologic: Yes (COMPRESSION FRACTURES T7 and T9) Psychiatric: No Reproductive: No Respiratory: Yes (COPD, uses O2 @ HS) Immunizations Current: Yes Thyroid Disease: No ?: Not Menopausal: Yes : 4 Para: 4 Past Surgical History Abdominal Surgery: No AICD: No Body Medical Devices: BREAST IMPLANTS Cardiac Surgery: No Ear Surgery: No Endocrine Surgery: No Eye Surgery: No Genitourinary Surgery: No Gynecologic Surgery: No Joint Replacement: No Oral Surgery: No Pacemaker: No Thoracic Surgery: No Other Surgery: Yes (BREAST AUG. EYELIDS, PLASTIC SURGERY, BACK SX) Social History Alcohol Use: No Tobacco Use: No (QUIT IN 2016) Substance Use: No Allergies-Medications (Allergen,Severity, Reaction): Coded Allergies: penicillin G (Unverified Allergy, Severe, UNKNOWN REACTION, 07/15/17) codeine (Unverified Adverse Reaction, Severe, VOMITING, DIARRHEA, 07/15/17) erythromycin base (Unverified Adverse Reaction, Severe, VOMITING, DIARRHEA , 07/15/17) Reported Meds & Prescriptions Reported Meds & Active Scripts Active Tramadol (Tramadol HCl) 50 Mg Tab 50 Mg PO Q4H PRN Reported Oxygen (O2) Device Liter EHSAN.CANULA HS Oxygen Concentrator Portable Gaseous 2 L/min via Nasal Canula Continuous For 99 months Calcium 600 with Vitamin D (Calcium Carbonate-Cholecalciferol) 600-400 mg-Unit Tab 1 Tab PO DAILY Breo Ellipta Inh (Fluticasone/Vilanterol) 100-25 Mcg/Act Inh 1 Puff INH DAILY Use daily at the same time. Ventolin Hfa 18 GM Inh (Albuterol Sulfate) 90 Mcg/Act Aer 1 Puff INH Q4H PRN Cranberry Urinary Comfort (Vitamins C & E) 1 Cap 1 Cap PO DAILY Pantoprazole (Pantoprazole Sodium) 40 Mg Tab 40 Mg PO DAILY Plaquenil (Hydroxychloroquine Sulfate) 200 Mg Tab 200 Mg PO BID Take with food Albuterol Neb (Albuterol Sulfate) 2.5 Mg/0.5 Ml Neb 2.5 Mg NEB Q6HR NEB Note: The Albuterol Sulfate Inhalation Solution is concentrated and must be diluted. Read complete instructions carefully before using. Review of Systems Except as stated in HPI: all other systems reviewed are Neg Physical Exam Narrative GENERAL: Well-appearing elderly white female patient who appears anxious, in mild distress. Awake and oriented 3. SKIN: Focused skin assessment warm/dry. HEAD: Atraumatic. Normocephalic. EYES: Pupils equal and round. No scleral icterus. No injection or drainage. ENT: No nasal bleeding or discharge. Mucous membranes pink and moist. NECK: Trachea midline. No JVD. CARDIOVASCULAR: Regular rate and rhythm. No murmur appreciated. RESPIRATORY: No accessory muscle use. Clear to auscultation. Breath sounds equal bilaterally. GASTROINTESTINAL: Abdomen soft, non-tender, nondistended. Hepatic and splenic margins not palpable. MUSCULOSKELETAL: No obvious deformities. No clubbing. No cyanosis. No edema. BACK: No CVA tenderness. No rash. The site of kyphoplasty appears to be clean, dry, intact with minimal bleeding. Fairly tender to palpation in those areas as well. NEUROLOGICAL: Awake and alert. No obvious cranial nerve deficits. Motor grossly within normal limits. Normal speech. PSYCHIATRIC: Anxious mood and affect; insight and judgment normal. Data Data Last Documented VS Vital Signs Date Time Temp Pulse Resp B/P (MAP) Pulse Ox O2 Delivery O2 Flow Rate FiO2 07/15/17 03:55 97 Nasal Cannula 2.00 07/15/17 03:52 97.5 95 26 134/59 (84) Orders Orders Chest, Single Ap (07/15/17 03:51) Ct Thor Spine W/O Contrast (07/15/17 04:47) Morphine Inj (Morphine Inj) (07/15/17 05:00) Ondansetron Inj (Zofran Inj) (07/15/17 05:00) Ed Discharge Order (07/15/17 06:15) MDM Medical Decision Making Medical Screen Exam Complete: Yes Emergency Medical Condition: Yes Medical Record Reviewed: Yes Interpretation(s) Last [address] 07/15/17 1098 Signed Impressions: Service Date/Time: Saturday, July 15, 2017 05:01 - CONCLUSION: Compression deformities with kyphoplasty changes of T7 and T9 as above. Small amounts of cement in the adjacent epidural spaces at each level but no associated significant foraminal or spinal stenosis. No significant complication demonstrated. No acute fracture. Jack Bailey MD Chest X-Ray 07/15/17 0351 Signed Impressions: Service Date/Time: Saturday, July 15, 2017 04:15 - CONCLUSION: No evidence of acute cardiopulmonary disease. Jack Bailey MD Differential Diagnosis Postop pain versus acute fractures Narrative Course CAT scan did not show any signs of acute fractures. Chest x-ray was fairly unremarkable. Case was discussed with Dr. Ball who did not recommend any further therapy, symptomatic p.o. pain medication.return for any worsening in symptoms as necessary. The plan has been discussed with her and she states understanding. Diagnosis Primary Impression: Postoperative back pain Disposition: DISCHARGE HOME Condition: Stable Estephania Esparza MD Jul 15, 2017 04:56
[2017-07-15] MEDS ORDERED: ONDANSETRON HCL 4 MG/2 ML VIAL IV PUSH ONE (05:00)
[2017-07-15] MEDS ORDERED: MORPHINE SULFATE 2 MG/ML INJ IV PUSH ONE (05:00)
--- NOTE | 2017-07-15 05:25 | RADRPT ---
EXAM DATE/TIME: 07/15/2017 05:01 [facility] COMPARISON: [facility] ( [facility]), July 14, 2017, 9:39. INDICATIONS : Back pain, post operative kyphoplasty 07/14/2017. RADIATION DOSE: 12.40 CTDIvol (mGy) MEDICAL HISTORY : None SURGICAL HISTORY : Kyphoplasty. ENCOUNTER: Initial ACUITY: 1 day PAIN SCALE: 10/10 LOCATION: [facility] TECHNIQUE: Volumetric scanning of the thoracic spine was performed. Multiplanar reconstructions in the sagittal , coronal and oblique axial planes were performed. Using automated exposure control and adjustment o f the mA and/or kV according to patient size, radiation dose was kept as low as reasonably achievable to obtain optimal diagnostic quality images. DICOM format image data is available electronically f or review and comparison. FINDINGS: There are nonacute compression deformities, moderate to severe of T7 and moderate of T9. Kyphoplasty changes are seen at both levels. Small amounts of cement leaked focally into the adjacent epidural sp aces but without associated significant foraminal or spinal stenosis. No retropulsed fracture fragmen ts are demonstrated. No other acute appearing fractures of the thoracic spine. No subluxations. There is mild disc space n arrowing and circumferential osseous ridging at T4/T5 and T5/T6. CONCLUSION: Compression deformities with kyphoplasty changes of T7 and T9 as above. Small amounts of cement in th e adjacent epidural spaces at each level but no associated significant foraminal or spinal stenosis. No significant complication demonstrated. No acute fracture. Jack Bailey MD on July 15, 2017 at 5:18 Board Certified Radiologist. This report was verified electronically.
== END 2017-07-15 07:05 | disposition home or self-care (01) ==
LOC: NEPE 03:39
DX: M54.9 Dorsalgia, unspecified (principal); R06.02 Shortness of breath; Z98.890 Other specified postprocedural states; L93.0 Discoid lupus erythematosus; J44.9 Chronic obstructive pulmonary disease, unspecified; K21.9 Gastro-esophageal reflux disease without esophagitis; M06.9 Rheumatoid arthritis, unspecified; Z79.51 Long term (current) use of inhaled steroids; Z79.899 Other long term (current) drug therapy
CPT/HCPCS: 71045; 72128; 96374; 96375; 99284; J2270; J2405